=== PATIENT | male | born 1965 | race Caucasian/White ===

== ENCOUNTER 2022-06-29 09:48 | Inpatient (IN) | payer OTHER, SELFPAY ==
[2022-06-29 09:49] VITALS: BP 140/87; PULSE 75; RESP 18; TEMP 36.1; O2SAT 98; BMI 23.1
--- NOTE | 2022-06-29 09:57 | NURSING ---
NO OLD EKGS
--- NOTE | 2022-06-29 10:23 | EKG12_ITS ---
Test Reason : WEAKNESS Blood Pressure : / mmHG Vent. Rate : 071 BPM Atrial Rate : 071 BPM P-R Int : 174 ms QRS Dur : 116 ms QT Int : 428 ms P-R-T Axes : 074 041 069 degrees QTc Int : 465 ms Normal sinus rhythm Normal ECG Confirmed by MAURA ROCKWELL, SAY ([id number]), digital editor CARIE ULLOA ([id number]) on 07/05/2022 9:40:59 AM Referred By: JUANITA/MAE Confirmed By:SAY LORENZO MD
--- NOTE | 2022-06-29 10:24 | EDS_ITS ---
HPI HPI - GI History of Present Illness Chief Complaint: Weakness Narrative Narrative: 57-year-old male presenting with generalized weakness. He states he started having nausea/vomiting on last week. 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 He reports a history of symptomatic anemia, which he states is due to the surgery he had in [place]. He I had a ruptured bowel or blood clot or something in my abdomen. He states it could be related to this. Patient denies any black or bloody stools. Denies history of GERD. He is not having any abdominal pain. He does report nausea and vomiting. No chest pain or shortness of breath. No fevers, chills, body aches. PFSH [facility] Medical History Anemia History of spleen injury Ischemia, bowel Kidney disease Home Medications calcium acetate 667 mg tablet 667 mg PO TID BINDER 06/29/22 [History Last Taken 06/27/22] cholecalciferol (vitamin D3) 50 mcg (2,000 unit) capsule 50 mcg PO BID SUPPLEMENT 06/29/22 [History Last Taken 06/27/22] ferrous sulfate 325 mg (65 mg iron) tablet 325 mg PO BID SUPPLEMENT 06/29/22 [History Last Taken 06/27/22] magnesium 200 mg tablet 600 mg PO BID SUPPLEMENT 06/29/22 [History Last Taken 06/27/22] sodium bicarbonate 650 mg tablet 1,950 mg PO BID SUPPLEMENT 06/29/22 [History Last Taken 06/27/22] tamsulosin 0.4 mg capsule 0.4 mg PO QHS PROSTATE 06/29/22 [History Last Taken 06/27/22] zinc gluconate 50 mg tablet 50 mg PO BID SUPPLEMENT 06/29/22 [History Last Taken 06/27/22] Allergy/AdvReac Type Severity Reaction Status Date / Time No Known Allergies Allergy Verified 06/29/22 09:49 Social History Smoking Status: Former smoker ROS ROS ED Cardiovascular Cardiovascular: Denies chest pain or palpitations Respiratory/Chest Respiratory/Chest: Denies cough or dyspnea Gastrointestinal Gastrointestinal: Reports nausea and vomiting; Denies abdominal pain Genitourinary Genitourinary ED: Denies dysuria or hematuria Musculoskeletal Musculoskeletal: Denies arthralgias or back pain Integumentary Denies abscess or Abrasions Neurologic Neurologic: Denies headache(s) Psychiatric Psychiatric: Denies anxiety or depression EXAM Physical Exam Const Vital Signs: 06/29/22 09:49 06/29/22 10:06 06/29/22 11:28 Temperature 96.9 F L Temperature Source Temporal Pulse Rate 75 Pulse Rate [Lying] 83 Pulse Rate [Sitting (for 1 minute prior to obtaining)] 94 Pulse Rate [Standing (for 1 minute prior to obtaining)] 89 Respiratory Rate 18 Respiratory Effort Normal Non-Labored Blood Pressure 140/87 H Blood Pressure [Lying] 109/70 Blood Pressure [Sitting (for 1 minute prior to obtaining)] 130/80 H Blood Pressure [Standing (for 1 minute prior to obtaining)] 116/76 Blood Pressure Mean 104 Blood Pressure Mean [Lying] 83 Blood Pressure Mean [Sitting (for 1 minute prior to obtaining)] 96 Blood Pressure Mean [Standing (for 1 minute prior to obtaining)] 89 Pulse Ox 98 Oxygen Delivery Method Room Air Positive well nourished General Appearance ED: NAD HEENT Reports moist mucous membranes Eyes PERRL and EOMs intact bilaterally General Eye ED: Negative for pale conjunctiva or scleral icterus Neck no lymphadenopathy Resp normal respiratory effort Auscultation: Negative for rales, rhonchi or wheezes Cardio regular rate and regular rhythm GI non-tender and non-distended Auscultation: normoactive bowel sounds Back/Spine no CVA tenderness Neuro CN's II-XII intact bilaterally Sensorium / Orientation: alert Psych mental status grossly normal Skin no wounds MDM MDM MDM Narrative Medical decision making narrative: Patient presenting with nausea/vomiting. Initially he states he has no other medical problems. Patient was given Zofran, 1 L of normal saline. He denied any abdominal pain. Differential includes gastritis, peptic ulcer disease, GERD, pancreatitis, dehydration, hypokalemia, atypical presentation of ACS, I obtained a CBC to assess for white blood cell count, hemoglobin, platelets, differential. CMP to assess liver function, renal function, glucose, anion gap. High-sensitivity troponin, EKG were obtained. Chest x-ray was obtained as well. CBC showed a normal white blood cell count of 6.6. Hemoglobin 7.8 with no comparison. Hematocrit 24.7. Platelets are normal at 209. Creatinine is 12.10 and GFR is 5. Calcium is low at 6.1 with normal albumin. Patient was given IV calcium gluconate. High-sensitivity troponin 14. Lipase 89. LFTs normal. EKG on my interpretation shows a normal sinus rhythm with a ventricular rate of 71 bpm without sign of ischemic change. Chest x-ray on my interpretation shows no acute cardiopulmonary process. The radiologist interprets this and agrees. I would back in the patient's room to discuss his renal function at which time he stated that he does have some renal disease and it was presumed he was going to need dialysis at some point. He states he does not currently have any dialysis access. He states he gets all his care [facility] [place]. 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 Although I do not have a comparison it does appear to be renal failure. Patient was discussed with Dr. Arreaga initially due to the anemia and he did not think this was due to GI bleed. The patient has not complained of any black or bloody stools or emesis. He does state he has a history of symptomatic anemia. He does not know his hemoglobin level. He does not know his renal function. He does not have any online access for any of this results. I did order renal ultrasound which showed findings consistent with medical renal disease and multiple bilateral cysts. There is also noted left renal atrophy. Right upper quadrant ultrasound unremarkable. Discussed with hospitalist for admission. Impression: 1. Anemia 2. Renal failure 3. Hypocalcemia 4. Nausea/vomiting Lab Data Labs: Laboratory Results - last 24 hr 06/29/22 06/29/22 10:15 10:15 WBC 6.6 RBC 2.59 L Hgb 7.8 L Hct 24.7 L MCV 95.4 H MCH 30.1 MCHC 31.6 L RDW Std Deviation 44.3 H RDW Coeff of Moody 12.9 Plt Count 209 MPV 11.4 Immature Gran % (Auto) 0.200 Neut % (Auto) 61.2 Lymph % (Auto) 23.7 [place] % (Auto) 11.7 H Eos % (Auto) 2.4 Baso % (Auto) 0.8 Absolute Neuts (auto) 4.0 Absolute Lymphs (auto) 1.56 Nucleated RBC % 0 Sodium 137 Potassium 4.7 Chloride 110 H Carbon Dioxide 18.0 L Anion Gap 9 BUN 114 H* Creatinine 12.10 H* Estim Creat Clear Calc 6.74 Est GFR (MDRD) Af Amer 6 L Est GFR (MDRD) Non-Af 5 L BUN/Creatinine Ratio 9.4 L Glucose 119 H Calcium 6.1 L* Total Bilirubin 0.30 AST 14 L ALT 17 Alkaline Phosphatase 88 Troponin I High Sens 14 Total Protein 6.8 Albumin 3.7 Globulin 3.1 Albumin/Globulin Ratio 1.2 Lipase 89 H Radiography Diagnostic Testing: Clinical Impression(s) from Imaging Studies Gallbladder Ultrasound 06/29/22 11:30 IMPRESSION: Nonvisualization of the pancreas and the gallbladder. Right renal cyst. Nonobstructive right intrarenal calculus. Electronically Signed: Parrish Nielson MD at 13:46 EDT , Renal Ultrasound 06/29/22 11:30 IMPRESSION: The renal cortices are echogenic bilaterally suggestive of medical renal disease. Multiple bilateral renal cysts. Mild atrophy of the left kidney. Electronically Signed: Parrish Nielson MD at 14:02 EDT , Discharge Plan Disposition Disposition: Acute Care Hospital [facility] Discharge Date/Time: 06/29/22 13:40
[2022-06-29] MEDS: 0.9% Normal Saline 1,000 ML 999 ML IV (10:30)
[2022-06-29] MEDS: Ondansetron 4 MG/2 ML Vial IV (10:30)
[2022-06-29 10:32] LABS: Absolute Lymphocyte Count 1.56 X10^3/uL (0.83-4.51); Basophil# 0.05 X10^3/uL; Basophil% 0.8 % (0-1); Eosinophil# 0.16 X10^3/uL; Eosinophils% 2.4 % (0-5); Hematocrit 24.7 % (40-54); Hemoglobin 7.8 g/dL (13.0-16.5); Lymphocyte # 1.56 X10^3/ul (0.83-4.51); Lymphocyte % 23.7 % (19-41); Mean Corp Hgb Conc 31.6 g/dL (32-36); Mean Corpuscular Hgb 30.1 pg (27.0-32.0); Mean Corpuscular Volume 95.4 fL (80-94); Mean Platelet Vol. 11.4 fl (6.2-12.0); Monocyte# 0.77 X10^3/uL; Monocyte% 11.7 % (0-10); NRBC Flagged by Analyzer 0 % (0-5); Neutrophil # 4.03 X10^3/uL (2.7-7.7); Neutrophil % 61.2 % (47-70); Platelet Count 209 K/mm3 (150-450); RBC Distribution Width CV 12.9 % (11.6-14.6); RBC Distribution Width SD 44.3 fl (35.1-43.9); Red Blood Count 2.59 M/mm3 (4.6-6.2); White Blood Count 6.6 K/mm3 (4.4-11.0)
[2022-06-29 10:58] LABS: ALB/GLOB Ratio 1.2 RATIO (0.9-2.4); AST(SGOT) 14 U/L (15-37); Alanine Aminotransfer ALT/SGPT 17 U/L (16-61); Albumin, Serum 3.7 g/dL (3.2-5.0); Alkaline Phosphatase 88 U/L (45-117); Anion Gap 9 (5-15); BUN 114 mg/dL (7-18); BUN/Creat Ratio 9.4 RATIO (10-20); Calcium,Total 6.1 mg/dL (8.5-10.1); Chloride 110 mmol/L (98-107); EST Glomerular Filtration Rate 5 mL/min (>60); Est Glom Filt Rate - Afr Amer 6 mL/min (>60); Estimated Creatinine Clearance 6.74 ml/min; Globulin 3.1 g/dL (2.2-4.2); Glucose 119 mg/dL (74-106); Lipase 89 U/L (13-75); Potassium 4.7 mmol/L (3.5-5.1); Protein, Total 6.8 g/dL (6.4-8.2); Sodium Level 137 mmol/L (136-145); Troponin-I HS 14 pg/mL (3.0-78.0)
--- NOTE | 2022-06-29 10:59 | ED.RN ---
LAB CALLED CRITICAL OF BUN 114, CREAT 12.[address] SPANN
--- NOTE | 2022-06-29 11:18 | NURSING ---
DR DELMAR WALL
[2022-06-29 11:28] VITALS: BP 109/70; BP 116/76; BP 130/80; PULSE 83; PULSE 89; PULSE 94
--- NOTE | 2022-06-29 11:30 | US_ITS ---
STUDY: ABDOMINAL ULTRASOUND - RIGHT UPPER QUADRANT REASON FOR VISIT: Male, 57 years old nausea vomiting TECHNIQUE: Ultrasound evaluation of the right upper quadrant was performed with real-time and static freitas-scale imaging. TECHNICAL QUALITY: Limited. Examination limited by bowel gas. COMPARISON: None. FINDINGS: Liver: The liver measures 16.6 cm. There is normal echogenicity of the liver. The bile ducts are within normal limits. There is hepatic color flow. The direction of portal flow is hepatopetal. There is no demonstrated mass lesion. Gallbladder: The gallbladder is not visualized. Common Bile Duct (C.B.D.): The common bile duct measures 7.3 mm. Right Kidney: Normal size of the right kidney. The right kidney measures 10.2 cm x 7 cm x 5.9 cm. Normal renal cortex. The right cortex measures 1.1 cm. Multiple cysts are seen. The largest measures 3.3 cm x 3.2 cm x 2.4 cm. There is a 4 mm x 5 mm nonobstructive intrarenal calculus. There is no right hydronephrosis. US/Gallbladder IMPRESSION: Nonvisualization of the pancreas and the gallbladder. Right renal cyst. Nonobstructive right intrarenal calculus. Electronically Signed: Parrish Nielson MD at 13:46 EDT ,
--- NOTE | 2022-06-29 11:30 | US_ITS ---
STUDY: RENAL ULTRASOUND - COMPLETE REASON FOR EXAM: Male, 57 years old. Renal failure TECHNIQUE: Ultrasound evaluation of the kidneys was performed with real-time and static duenas-scale imaging. COMPARISON: None. FINDINGS: RIGHT KIDNEY: Normal location of the right kidney, which is normal in size. The right kidney measures 10.2 cm x 7 signed by 5.9 cm. Echogenic appearance of the renal cortex suggestive of medical renal disease. Multiple small cysts are seen. The largest measures 3.3 cm x 3.27 x 2.4 cm. The renal cortex measures 1.2 cm. There is a 4 mm x 5 mm x 4 mm nonobstructive intrarenal calculus. There are no right renal calculi. There is no right hydronephrosis. DISTAL RIGHT URETER: There is non-visualization of the distal right ureter. There is no demonstrated right ureterovesical junction calculus. There is no demonstrated right ureteral jet. LEFT KIDNEY: with mild renal atrophy. The left kidney measures 8 cm x 5.3 cm x 5.2 cm. The renal cortex is of increased echotexture suggesting medical renal disease. Multiple small cysts are seen. The largest measures 1.5 cm x 1.3 cm x 1.2 cm. The renal cortex measures 1.2 cm. There are no left renal calculi. There is no left hydronephrosis. DISTAL LEFT URETER: There is non-visualization of the distal left ureter. There is no demonstrated left ureterovesical junction calculus. There is no demonstrated left ureteral jet. BLADDER: The distended urinary bladder has a volume of 414 ml. There is a normal wall thickness of the distended urinary bladder. There is no demonstrated mass within the urinary bladder. There are no demonstrated bladder calculi. US/Kidney and Bladder IMPRESSION: The renal cortices are echogenic bilaterally suggestive of medical renal disease. Multiple bilateral renal cysts. Mild atrophy of the left kidney. Electronically Signed: Parrish Nielson MD at 14:02 EDT ,
--- NOTE | 2022-06-29 11:52 | NURSING ---
DR MANCILLA IN ER
--- NOTE | 2022-06-29 11:59 | NURSING ---
PCU LAURENT ANNITA
--- NOTE | 2022-06-29 12:21 | RAD_ITS ---
STUDY: X-RAY CHEST REASON FOR EXAM: Male, 57 years old. Nausea vomiting TECHNIQUE: Single AP portable view of the chest. COMPARISON: None. FINDINGS: The lungs are clear and expanded. There is no demonstrated pleural abnormality. Normal size heart. Normal mediastinum and bea. Normal visualized pulmonary arteries. Normal visualized aortic arch and descending thoracic aorta. Normal visualized thoracic spine. Normal visualized ribs, clavicles, and shoulders. There is no demonstrated abnormality of the visualized soft tissue structures of the upper abdomen. RAD/Chest 1 View (Portable) IMPRESSION: Normal x-ray examination of the chest. Electronically Signed: Parrish Nielson MD at 13:44 EDT ,
--- NOTE | 2022-06-29 12:29 | ED.RN ---
THIS RN CALLED [facility] TO OBTAIN BED CONTROL, NO ANSWER, THIS RN LEFT A VOICE MESSAGE.
[2022-06-29 12:35] VITALS: BP 125/81; PULSE 64; RESP 18; TEMP 36.8; O2SAT 98
[2022-06-29 13:42] VITALS: BMI 22.8
--- NOTE | 2022-06-29 13:50 | PCM.HP.STD ---
[facility] - General General Date of Admission: 06/29/22 Date of Service: 06/29/22 Chief Complaint: Generalized weakness. Low energy since last . Nausea vomiting and loose bowel movement. HPI Narrative PERRY POPE, is a 57 M who came to ED for generalized weakness with no energy, worn down. Patient started having nausea vomiting since last . Vomiting increased on Tuesday night. Patient denies any loose bowel movement or abdominal pain. Patient denies fever chills cough cold or chest pain or shortness of breath. Denies history of chronic heart disease, hypertension and diabetes. Patient has history of symptomatic chronic anemia. In 2011 patient had ruptured bowel probably from bowel ischemia with blood loss. In 2017 patient had blood transfusion for generalized weakness, dyspnea on exertion palpitation consistent with symptomatic anemia. 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 Patient follows track superintendent Dr. Holland in [place], [place]. He first saw him in October 2021 when patient had kidney failure, creatinine about 5 mg/dL with residual urine about 700 mL. At that time patient was on indomethacin 4 times daily which was discontinued. His kidney function did not improve significantly. Therefore left forearm AV fistula was created in January 2022. Patient was last seen by track superintendent in April 2022, when his creatinine was 4.82 GFR about 18 and BUN 43. In ED today patient came with BUN/creatinine 114/12.1, serum potassium, sodium normal range. Bicarb low at 18, anion gap 9, suggestive of chronic normal anion gap metabolic acidosis. Calcium 6.1, albumin 3.7. Hemoglobin low 7.8 but platelets normal. ER physician consulted for low hemoglobin but is thought to be from CKD stage V. Patient does not have GI bleed or hematuria or external bleeding. I talked to [place] track superintendent and patient is further admitted Past medical history as documented below. Anemia of chronic disease from CKD Social history: Patient has a history of substance use in the past quit 8 years ago. He used to have IV heroin about 4 g daily. He has also used methamphetamine and crack cocaine in the past. He was also smoking cigarettes 1 pack/day started in teenage quit 8 years ago. Denies chronic regular alcohol use. Family history: No first-degree family history of kidney failure dialysis or kidney transplant [facility] Medical History Anemia History of spleen injury Ischemia, bowel Kidney disease Home Medications calcium acetate 667 mg tablet 667 mg PO TID BINDER 06/29/22 [History Last Taken 06/27/22] cholecalciferol (vitamin D3) 50 mcg (2,000 unit) capsule 50 mcg PO BID SUPPLEMENT 06/29/22 [History Last Taken 06/27/22] ferrous sulfate 325 mg (65 mg iron) tablet 325 mg PO BID SUPPLEMENT 06/29/22 [History Last Taken 06/27/22] magnesium 200 mg tablet 600 mg PO BID SUPPLEMENT 06/29/22 [History Last Taken 06/27/22] sodium bicarbonate 650 mg tablet 1,950 mg PO BID SUPPLEMENT 06/29/22 [History Last Taken 06/27/22] tamsulosin 0.4 mg capsule 0.4 mg PO QHS PROSTATE 06/29/22 [History Last Taken 06/27/22] zinc gluconate 50 mg tablet 50 mg PO BID SUPPLEMENT 06/29/22 [History Last Taken 06/27/22] Allergy/AdvReac Type Severity Reaction Status Date / Time No Known Allergies Allergy Verified 06/29/22 09:49 Social History Smoking Status: Former smoker ROS ROS Narrative Constitutional: Reports fatigue and weakness HEENT: Reports systems reviewed and no addt'l complaints, except as documented Respiratory/Chest: Denies emphysema. No shortness of breath at rest. CVS: States pounding sensation, palpitation and dyspnea on moderate exertion. No chest pain. Gastrointestinal: Denies coffee ground emesis, hematemesis or vomiting Genitourinary: Decrease in the urine output in last 6 months to 1 year. Denies burning urination or new urinary tract symptoms Musculoskeletal: Denies joint pain and limited range of motion Neurologic: Denies seizure-like activity skin: No ulcer. No rash Endocrinology: Reports systems reviewed and no addt'l complaints, except as documented Hematologic/Lymphatic: Reports systems reviewed and no addt'l complaints, except as documented Rest 14 ROS are negative except as mentioned in HPI Vital Signs Vital Signs Vital Signs: 06/29/22 09:49 06/29/22 10:06 06/29/22 11:28 Temperature 96.9 F L Temperature Source Temporal Pulse Rate 75 Pulse Rate [Lying] 83 Pulse Rate [Sitting (for 1 minute prior to obtaining)] 94 Pulse Rate [Standing (for 1 minute prior to obtaining)] 89 Respiratory Rate 18 Respiratory Effort Normal Non-Labored Blood Pressure 140/87 H Blood Pressure [Lying] 109/70 Blood Pressure [Sitting (for 1 minute prior to obtaining)] 130/80 H Blood Pressure [Standing (for 1 minute prior to obtaining)] 116/76 Blood Pressure Mean 104 Blood Pressure Mean [Lying] 83 Blood Pressure Mean [Sitting (for 1 minute prior to obtaining)] 96 Blood Pressure Mean [Standing (for 1 minute prior to obtaining)] 89 Pulse Ox 98 Oxygen Delivery Method Room Air 06/29/22 12:35 06/29/22 12:35 Temperature 98.2 F Temperature Source Temporal Pulse Rate 64 64 Pulse Rate [Lying] Pulse Rate [Sitting (for 1 minute prior to obtaining)] Pulse Rate [Standing (for 1 minute prior to obtaining)] Respiratory Rate 18 18 Respiratory Effort Blood Pressure 125/81 H 125/81 H Blood Pressure [Lying] Blood Pressure [Sitting (for 1 minute prior to obtaining)] Blood Pressure [Standing (for 1 minute prior to obtaining)] Blood Pressure Mean 95 95 Blood Pressure Mean [Lying] Blood Pressure Mean [Sitting (for 1 minute prior to obtaining)] Blood Pressure Mean [Standing (for 1 minute prior to obtaining)] Pulse Ox 98 98 Oxygen Delivery Method Room Air Room Air Weight Weight: 156 lb 14.4 oz Body Mass Index (BMI) 23.1 Physical Exam Narrative General: Alert, Oriented x3, Cooperative HEENT: Atraumatic, PERRLA, EOMI, Normocephalic Oral: Oral mucosa moist no Gingival or Mucosal Lesions/ Ulcerations Neck: Supple, No JVD, Negative Carotid Bruits Lungs: Air entry diminished in bilateral lung bases. No crepitation/rhonchi Cardiovascular: Regular rate, Regular Rhythm, Normal S1, Normal S2, No murmurs/gallop or rub Abdomen: Soft, midline surgical scar present. No obvious hernia. Bowel Sounds Present, Non Tender, Non-Distended : No renal angle tenderness. No suprapubic tenderness. Extremities: AV fistula on left forearm. Palpable thrill present. No edema, Capillary Refill Less than 3 Seconds Skin: No rashes, No breakdown Musculoskeletal: No Tenderness to Palpation of Joints or Extremities Neurological: Cranial nerves II-XII grossly intact, DTR 2+/4 and Symmetrical, Neuro grossly intact Psych/Mental Status: Normal Affect, Appropriate. Results Lab / Micro Data Result Diagrams: 06/29/22 10:15 06/29/22 10:15 Labs: Laboratory Results - last 24 hr 06/29/22 10:15: WBC 6.6, RBC 2.59 L, Hgb 7.8 L, Hct 24.7 L, MCV 95.4 H, MCH 30.1, MCHC 31.6 L, RDW Std Deviation 44.3 H, RDW Coeff of Moody 12.9, Plt Count 209, MPV 11.4, Immature Gran % (Auto) 0.200, Neut % (Auto) 61.2, Lymph % (Auto) 23.7, Curry % (Auto) 11.7 H, Eos % (Auto) 2.4, Baso % (Auto) 0.8, Absolute Neuts (auto) 4.0, Absolute Lymphs (auto) 1.56, Nucleated RBC % 0 06/29/22 10:15: Sodium 137, Potassium 4.7, Chloride 110 H, Carbon Dioxide 18.0 L, Anion Gap 9, BUN 114 H*, Creatinine 12.10 H*, Estim Creat Clear Calc 6.74, Est GFR (MDRD) Af Amer 6 L, Est GFR (MDRD) Non-Af 5 L, BUN/Creatinine Ratio 9.4 L, Glucose 119 H, Calcium 6.1 L*, Total Bilirubin 0.30, AST 14 L, ALT 17, Alkaline Phosphatase 88, Troponin I High Sens 14, Total Protein 6.8, Albumin 3.7, Globulin 3.1, Albumin/Globulin Ratio 1.2, Lipase 89 H Radiology Impression Gallbladder Ultrasound 06/29/22 11:30 IMPRESSION: Nonvisualization of the pancreas and the gallbladder. Right renal cyst. Nonobstructive right intrarenal calculus. Electronically Signed: Parrish Nielson MD at 13:46 EDT , Chest X-Ray 06/29/22 12:21 IMPRESSION: Normal x-ray examination of the chest. Electronically Signed: Parrish Nielson MD at 13:44 EDT , Assessment & Plan Assessment/Plan (1) CKD (chronic kidney disease), stage V: (2) Anemia in chronic kidney disease (CKD): PLAN: Plan 57-year-old gentleman is being admitted for nausea vomiting for the past 5 days. Found to have CKD stage V progressively worsening and severe anemia 1. Progressive worsening of CKD stage V: Patient is being admitted in PCU. Discussed with the track superintendent, Dr. Monteiro. I also called patient's track superintendent Dr. Holland in [facility], [place] [phone]. Detailed conversation documented in HPI. He agrees with starting the dialysis. Patient might have nausea vomiting from uremia. Patient had 1 L normal saline in ED. Started on half-normal saline at 100 mill per hour. Chloride is 110. Patient has left forearm AV fistula with good palpable thrill. Kidney ultrasound reported the renal cortices are echogenic bilaterally suggestive of medical renal disease. Multiple bilateral renal cysts. Mild atrophy of the left kidney. UA, urine electrolytes, urine protein creatinine ratio ordered. 2. Severe chronic symptomatic anemia, most likely due to CKD stage V: Patient hemoglobin is 7.8, MCV 95.4 and platelet count 209,000. Patient might have palpitation dyspnea on exertion from anemia and chronic kidney disease. 2D echo ordered. Anemia work-up ordered. Stool for occult blood ordered patient does not need transfusion. Gallbladder ultrasound shows nonvisualization of pancreas and gallbladder. Nonobstructive right intrarenal calculus. 3. Hypocalcemia: Patient calcium is 6.1. Albumin 3.7. Corrected calcium 6.3. Patient was given calcium gluconate 1 g in ED. Serum phosphorous and magnesium ordered. 4. History of polysubstance use: U tox ordered. VTE prophylaxis contraindicated in view of severe anemia. Bilateral SCDs Living will/advanced directive/end of life care: Patient does not have living will or advanced directive. After discussion of benefits/risks procedures involved with full code, DNR CC arrest and DNR CC, the patient opted for full code. He does not have designated power of erisa attorney for health. His next of kin is his girlfriend, significant others Ms. Cathleen Paniagua. Patient does want artificial life support including intubation, tube feed, ventilator and/chest compression, central venous catheter, vasopressor and DC shock if needed Total time spent in [id number] encounter in discussion of advanced directive 17 minutes. Laboratory Results 06/29/22 10:15: WBC 6.6, RBC 2.59 L, Hgb 7.8 L, Hct 24.7 L, MCV 95.4 H, MCH 30.1, MCHC 31.6 L, RDW Std Deviation 44.3 H, RDW Coeff of Moody 12.9, Plt Count 209, MPV 11.4, Immature Gran % (Auto) 0.200, Neut % (Auto) 61.2, Lymph % (Auto) 23.7, Curry % (Auto) 11.7 H, Eos % (Auto) 2.4, Baso % (Auto) 0.8, Absolute Neuts (auto) 4.0, Absolute Lymphs (auto) 1.56, Nucleated RBC % 0 06/29/22 10:15: Sodium 137, Potassium 4.7, Chloride 110 H, Carbon Dioxide 18.0 L, Anion Gap 9, BUN 114 H*, Creatinine 12.10 H*, Estim Creat Clear Calc 6.74, Est GFR (MDRD) Af Amer 6 L, Est GFR (MDRD) Non-Af 5 L, BUN/Creatinine Ratio 9.4 L, Glucose 119 H, Calcium 6.1 L*, Total Bilirubin 0.30, AST 14 L, ALT 17, Alkaline Phosphatase 88, Troponin I High Sens 14, Total Protein 6.8, Albumin 3.7, Globulin 3.1, Albumin/Globulin Ratio 1.2, Lipase 89 H 06/29/22 10:15: Phosphorus Pending, Magnesium Pending Clinical Impression(s) from Imaging Studies Gallbladder Ultrasound 06/29/22 11:30 IMPRESSION: Nonvisualization of the pancreas and the gallbladder. Right renal cyst. Nonobstructive right intrarenal calculus. Renal Ultrasound 06/29/22 11:30 IMPRESSION: The renal cortices are echogenic bilaterally suggestive of medical renal disease. Multiple bilateral renal cysts. Mild atrophy of the left kidney. Electronically Signed: Parrish Nielson MD at 14:02 EDT , Chest X-Ray 06/29/22 12:21 IMPRESSION: Normal x-ray examination of the chest. Electronically Signed: Parrish Nielson MD at 13:44 EDT , Charges/Coding Visit Charges Inpatient E&M: 53043 Init Hosp L3 Procedures Hospitalists Procedures: 57522 Advncd Care Plan 30 Min
[2022-06-29 14:00] VITALS: BP 126/84; PULSE 67; RESP 18; TEMP 36.6; O2SAT 99
[2022-06-29 15:47] LABS: Magnesium 1.6 mg/dL (1.6-2.6); Phosphorus 8.3 mg/dL (2.5-4.9)
[2022-06-29 15:55] LABS: Vitamin B12 531 pg/mL (211-911)
--- NOTE | 2022-06-29 15:56 | NURSING ---
ATTEMPTED 3 TIMES TO CALL [facility] TO LET THEM KNOW OF THE ADMISSION. NEVER GOT THE CONDENSER CLEANER TO ANSWER AND TRANSFER THE THIS PERSON
[2022-06-29 16:04] LABS: Ferritin 524 ng/mL (26-388); Iron 220 ug/dL (65-175); Iron Binding Capacity,Total 170 ug/dL (250-450); PERCENT IRON SATURATION 129.4 % (15.0-55.0)
[2022-06-29] MEDS: 0.45% Normal Saline 1,000 ML 100 ML IV (16:10)
[2022-06-29] MEDS: Sodium Bicarbonate 650 MG Tablet 1950 MG PO ×2 (16:10→22:46)
[2022-06-29] MEDS: Calcium Acetate 667 MG Capsule PO (16:10)
[2022-06-29] MEDS: Ferrous Sulfate 325 MG Tablet PO (16:10)
[2022-06-29 16:34] LABS: Bacteria 0 SEEN /hpf (None Seen); Mucous, Urine 0 SEEN /hpf (<or=2+); Squamous Epithelial Cells - UA 0 SEEN /hpf (0-5); White Blood Cells 0 SEEN /hpf (0-5)
[2022-06-29 16:38] LABS: Color, Urine Straw (Yellow); Glucose, Dipstick Normal (Normal); Ketone-Dipstick Negative (Negative); Leukocyte Esterase-Dipstick Negative /ul (Negative); Nitrite-Dipstick Negative (Negative); Occult Blood-Urine 50 /ul (Negative); Protein-Dipstick 15 mg/dl (Negative); Urine Bilirubin Dipstick Negative (Negative); Urine Clarity Clear (Clear); Urine Urobilinogen Normal (Normal)
[2022-06-29 16:45] LABS: Red Blood Cells-Urine 0-5 SEEN /hpf (0-5)
[2022-06-29 16:52] LABS: Protein, Urine (Random) 19.5 mg/dL (<11.9); Protein:Creat Ratio 533 mg/g CRE (0-200); Urine Chloride 93 mmol/L (Not Establ.); Urine Sodium 93 mmol/L (Not Establ.)
[2022-06-29 17:15] LABS: Amphetamine Urine VISTA NEGATIVE (<1000 ng/mL); Barbiturate Urine VISTA NEGATIVE (< 200 ng/mL); Benzodiazepine Urine VISTA NEGATIVE (< 200 ng/mL); Cocaine Urine VISTA NEGATIVE (< 300 ng/mL); Ecstacy Urine VISTA NEGATIVE (< 500 ng/mL); Methadone Urine VISTA NEGATIVE (< 300 ng/mL); PCP Urine VISTA NEGATIVE (< 25 ng/mL); THC Urine VISTA NEGATIVE (< 50 ng/mL); Vista UDS pH Range 6
[2022-06-29 17:19] LABS: Osmolality, Urine 326 mOsm/KG
--- NOTE | 2022-06-29 19:22 | ECHOD_ITS ---
Reason For Study: Dyspnea/SOB Procedure This was a 2D Doppler, Color Flow transthoracic echocardiogram. Patient refused subcostal imaging due to abdominal pain. Exam performed portable in patient room. Left Ventricle Normal left ventricle. The estimated ejection fraction is 55-60 %. Right Ventricle Normal right ventricle. Normal systolic function. Atria Normal left atrium. Normal right atrium. Mitral Valve The mitral valve is structurally normal. No prolapse or stenosis seen. No mitral valve insufficiency. Tricuspid Valve Normal tricuspid valve. Aortic Valve The aortic valve is not well visualized in the short axis view. Pulmonic Valve The pulmonic valve is not well visualized. Great Vessels Normal aortic root. Pericardium/Pleural No pericardial effusion. MMode/2D Measurements & Calculations LVIDd: 5.7 cm IVSd: 1.1 cm Ao root diam: 3.8 cm LVIDs: 3.6 cm LVPWd: 0.97 cm LA dimension: 3.9 cm RVDd: 4.2 cm FS: 36.0 % LAV(MOD-bp): 89.8 ml LA A4 area: 24.9 cm2 RA A4 area: 22.2 cm2 LAV(MOD-bp) Indexed: 48.5 ml/m2 LAV(MOD-sp2): 86.5 ml LAV(MOD-sp4): 77.9 ml Time Measurements MV dec time: 0.26 sec Doppler Measurements & Calculations MV E max garrison: 84.5 cm/sec Lat Peak E' Garrison: 13.2 cm/sec Med Peak E' Garrison: 14.3 cm/sec MV A max garrison: 63.5 cm/sec E/E' lat: 6.4 E/E' med: 5.9 MV E/A: 1.3 MV V2 max: 86.2 cm/sec MV P1/2t max garrison: 86.7 cm/sec Ao V2 max: 127.0 cm/sec MV max P.0 mmHg MV P1/2t: 84.4 msec Ao max P.5 mmHg MV V2 mean: 52.2 cm/sec MV dec slope: 300.8 cm/sec2 MV mean P.3 mmHg MVA(P1/2t): 2.6 cm2 MV V2 VTI: 30.2 cm LV V1 max: 120.4 cm/sec PA V2 max: 98.0 cm/sec TR max garrison: 235.3 cm/sec LV V1 max P.8 mmHg TR max P.2 mmHg LV V1 mean P.3 mmHg LV V1 mean: 84.8 cm/sec LV V1 VTI: 28.1 cm ECHO/Echo Complete Interpretation Summary The estimated ejection fraction is 55-60 %. Previous echocardiogram to compare Limited studies. Ordering Physician: Jeferson Henson Performed By: Nakul Aguilar RCS
[2022-06-29 20:23] VITALS: BP 112/77; PULSE 62; RESP 18; TEMP 36.8; O2SAT 98
[2022-06-29 22:42] VITALS: BP 115/73; PULSE 99; RESP 18; TEMP 36.7; O2SAT 99
[2022-06-29] MEDS: Magnesium Chloride 64 MG Delay Rel.Tablet 128 MG PO (22:47)
[2022-06-29] MEDS: Tamsulosin HCl 0.4 MG Capsule PO (22:48)
[2022-06-29] MEDS: Cholecalciferol (VIT D3) 25 MCG TABLET (1,000 UNITS) 50 MCG PO (22:48)
[2022-06-30] VITALS (7 sets, daily range): BP systolic 103–146; BP diastolic 67–81; PULSE 61–70; RESP 16–18; TEMP 36.6–37.2; O2SAT 95–98; BMI 22.9
[2022-06-30] MEDS: Sodium Bicarbonate 650 MG Tablet 1950 MG PO ×3 (05:00→21:34)
[2022-06-30 05:11] LABS: Absolute Lymphocyte Count 2.17 X10^3/uL (0.83-4.51); Absolute Neutrophil Count 3.5 X10^3/uL (2.0-7.7); Basophil# 0.04 X10^3/uL; Basophil% 0.6 % (0-1); Eosinophil# 0.16 X10^3/uL; Eosinophils% 2.4 % (0-5); Hemoglobin 6.6 g/dL (13.0-16.5); Lymphocyte # 2.17 X10^3/ul (0.83-4.51); Lymphocyte % 32.5 % (19-41); Mean Corp Hgb Conc 31.4 g/dL (32-36); Mean Corpuscular Hgb 30.4 pg (27.0-32.0); Mean Corpuscular Volume 96.8 fL (80-94); Mean Platelet Vol. 11.4 fl (6.2-12.0); Monocyte# 0.82 X10^3/uL; Monocyte% 12.3 % (0-10); NRBC Flagged by Analyzer 0 % (0-5); Neutrophil # 3.47 X10^3/uL (2.7-7.7); Neutrophil % 52.1 % (47-70); Platelet Count 169 K/mm3 (150-450); RBC Distribution Width CV 13.1 % (11.6-14.6); RBC Distribution Width SD 46.1 fl (35.1-43.9); Red Blood Count 2.17 M/mm3 (4.6-6.2); White Blood Count 6.7 K/mm3 (4.4-11.0)
[2022-06-30 06:01] LABS: Anion Gap 8 (5-15); BUN 103 mg/dL (7-18); BUN/Creat Ratio 9.3 RATIO (10-20); Calcium,Total 5.8 mg/dL (8.5-10.1); Chloride 113 mmol/L (98-107); EST Glomerular Filtration Rate 5 mL/min (>60); Est Glom Filt Rate - Afr Amer 6 mL/min (>60); Estimated Creatinine Clearance 7.32 ml/min; Glucose 118 mg/dL (74-106); Potassium 4.6 mmol/L (3.5-5.1); Sodium Level 137 mmol/L (136-145)
--- NOTE | 2022-06-30 06:35 | PCM.HOSP.N ---
Hospitalist Note Hgb 6.6, will order 1 u PRBC.
[2022-06-30] MEDS: Magnesium Chloride 64 MG Delay Rel.Tablet 128 MG PO ×2 (08:38→21:33)
[2022-06-30] MEDS: Ferrous Sulfate 325 MG Tablet PO (08:38)
[2022-06-30] MEDS: Calcium Acetate 667 MG Capsule PO ×3 (08:38→16:57)
[2022-06-30] MEDS: Cholecalciferol (VIT D3) 25 MCG TABLET (1,000 UNITS) 50 MCG PO ×2 (08:39→21:35)
[2022-06-30 09:44] LABS: Hepatitis B Surf AB - EMP Non-Reactive; Hepatitis B Surface Antigen Non-Reactive (Nonreactive)
--- NOTE | 2022-06-30 10:16 | PCM.CONS.R ---
Assessment & Plan Assessment/Plan (1) CKD (chronic kidney disease), stage V: (2) Anemia in chronic kidney disease (CKD): (3) Metabolic acidosis: PLAN: Plan This is a 57-year-old male with past medical history significant for chronic kidney disease stage IV/V who presented to the emergency room yesterday with complaints of feeling unwell, fatigue, nausea. In the emergency room lab work demonstrated creatinine 12.10, BUN 114, estimated GFR 5. Patient was admitted for further evaluation and treatment. Patient has a known history of CKD and patient's technical asst, Dr. Holland (in [place]) was contacted yesterday by Dr. Henson. Apparently in October 2021 serum creatinine 5 mg/dL and in April 2022 serum creatinine 4.82. In anticipation for eventual hemodialysis patient did undergo creation left forearm AV fistula in January 2022. Today patient's creatinine is 11.10, potassium 4.6, bicarb 16. It appears patient has had some progression of CKD now needing renal replacement therapy. Patient does have uremic symptoms. In anticipation for eventual hemodialysis patient did undergo creation left arm AV fistula however today there is not a strong thrill and bruit. Surgery team has been consulted for placement of tunneled HD catheter. Vascular team also consulted to evaluate AV fistula if able to be accessed or even salvaged. Risks and benefits of dialysis was explained to patient and he is in agreement for starting hemodialysis. Once access is placed we will start hemodialysis. There is no emergent need for TEST ARCHITECT today, patient is not hypervolemic or hyperkalemic. Potassium 4.6, though bicarb is low patient is on sodium bicarbonate tablets and this will improve with hemodialysis. May be able to stop bicarbonate tablets at time of discharge. We will consult social media campaign manager and discharge planning team to arrange for outpatient dialysis in [place]. Hepatitis B surface antigen and hepatitis panel ordered. Blood pressures acceptable, not on any antihypertensives. Patient is on a binder we will monitor phosphorus levels periodically. Today hemoglobin is 6.6 and patient is receiving 1 unit PRBC; patient likely has anemia of chronic disease. Stool OB ordered to rule out other reasons for anemia. Further orders forthcoming as hospitalization evolves, thank you for allowing us to participate in the care of Mr. Levy. HPI Consult Data Date of Consult: 06/30/22 HPI Narrative HPI Narrative: PERRY LEVY, is a 57 M with past medical history significant for CKD stage IV/V, anemia of chronic disease, who presented to the emergency room yesterday with complaints of feeling unwell with nausea and vomiting going on since last week. Lab work in the emergency room showed creatinine 12.10, BUN 114, potassium 4.7 and bicarb 18. Patient was admitted for further evaluation and treatment. We were consulted for renal insufficiency. Patient reports he follows with nephrology in [place] and has been told that he has CKD stage IV/V. In anticipation for eventual need for hemodialysis patient underwent creation of left forearm AV fistula in January 2022. Patient reports since AV fistula creation he was seen by his vascular surgeon but is unaware if AVF is functioning and able to be used as per patient he was told I did the best I could do. Patient denies any recent NSAID use, denies any new medications. Patient does complain of feeling tired with no energy. [facility] Medical History Anemia History of spleen injury Ischemia, bowel Kidney disease Home Medications calcium acetate 667 mg tablet 667 mg PO TID BINDER 06/29/22 [History Last Taken 06/27/22] cholecalciferol (vitamin D3) 50 mcg (2,000 unit) capsule 50 mcg PO BID SUPPLEMENT 06/29/22 [History Last Taken 06/27/22] ferrous sulfate 325 mg (65 mg iron) tablet 325 mg PO BID SUPPLEMENT 06/29/22 [History Last Taken 06/27/22] magnesium 200 mg tablet 600 mg PO BID SUPPLEMENT 06/29/22 [History Last Taken 06/27/22] sodium bicarbonate 650 mg tablet 1,950 mg PO BID SUPPLEMENT 06/29/22 [History Last Taken 06/27/22] tamsulosin 0.4 mg capsule 0.4 mg PO QHS PROSTATE 06/29/22 [History Last Taken 06/27/22] zinc gluconate 50 mg tablet 50 mg PO BID SUPPLEMENT 06/29/22 [History Last Taken 06/27/22] Allergy/AdvReac Type Severity Reaction Status Date / Time No Known Allergies Allergy Verified 06/29/22 09:49 Social History Smoking Status: Former smoker ROS ROS Narrative As in HPI Physical Exam Narrative Alert and oriented x3, no apparent distress S1, S2, RRR Lung sounds clear anteriorly and posteriorly no wheezes, rhonchi or rales noted Abdomen soft, nontender, positive bowel sounds x4 quadrants No edema noted to bilateral lower legs feet or arms Left forearm AV fistula unable to auscultate bruit, unable to palpate thrill. Lab / Micro Data Result Diagrams: 06/30/22 04:53 06/30/22 04:53 Labs: Laboratory Results - last 24 hr 06/29/22 10:15: WBC 6.6, RBC 2.59 L, Hgb 7.8 L, Hct 24.7 L, MCV 95.4 H, MCH 30.1, MCHC 31.6 L, RDW Std Deviation 44.3 H, RDW Coeff of Moody 12.9, Plt Count 209, MPV 11.4, Immature Gran % (Auto) 0.200, Neut % (Auto) 61.2, Lymph % (Auto) 23.7, Sharp % (Auto) 11.7 H, Eos % (Auto) 2.4, Baso % (Auto) 0.8, Absolute Neuts (auto) 4.0, Absolute Lymphs (auto) 1.56, Nucleated RBC % 0 06/29/22 10:15: Sodium 137, Potassium 4.7, Chloride 110 H, Carbon Dioxide 18.0 L, Anion Gap 9, BUN 114 H*, Creatinine 12.10 H*, Estim Creat Clear Calc 6.74, Est GFR (MDRD) Af Amer 6 L, Est GFR (MDRD) Non-Af 5 L, BUN/Creatinine Ratio 9.4 L, Glucose 119 H, Calcium 6.1 L*, Total Bilirubin 0.30, AST 14 L, ALT 17, Alkaline Phosphatase 88, Troponin I High Sens 14, Total Protein 6.8, Albumin 3.7, Globulin 3.1, Albumin/Globulin Ratio 1.2, Lipase 89 H 06/29/22 10:15: Phosphorus 8.3 H, Magnesium 1.6 06/29/22 10:15: Vitamin B12 531 06/29/22 10:15: Iron 220 H, TIBC 170 L, Iron Saturation 129.4 H, Ferritin 524 H, Folate 17.60 06/29/22 10:15: Blood Type O POSITIVE, Antibody Screen NEGATIVE, Crossmatch See Detail 06/29/22 10:15: Hep Bs Antigen Non-Reactive, Hep Bs Antibody Non-Reactive 06/29/22 16:15: Urine Opiates Screen NEGATIVE, Urine Methadone Screen NEGATIVE, Ur Barbiturates Screen NEGATIVE, Ur Phencyclidine Scrn NEGATIVE, Ur Amphetamines Screen NEGATIVE, MDMA (Ecstasy) Screen NEGATIVE, U Benzodiazepines Scrn NEGATIVE, Urine Cocaine Screen NEGATIVE, U Cannabinoids Screen NEGATIVE, Ur Drug Screen Comment 06/29/22 16:15: Urine Color Straw, Urine Clarity Clear, Urine pH 6.0, Ur Specific [place] 1.010, Urine Protein 15 H, Urine Glucose (UA) Normal, Urine Ketones Negative, Urine Occult Blood 50 H, Urine Nitrite Negative, Urine Bilirubin Negative, Urine Urobilinogen Normal, Ur Leukocyte Esterase Negative, Urine RBC 0-5 SEEN, Urine WBC 0 SEEN, Ur Squamous Epith Cells 0 SEEN, Urine Bacteria 0 SEEN, Urine Mucus 0 SEEN 06/29/22 16:15: Urine Osmolality 326, U Random Total Protein 19.5 H, Ur Random Sodium 93, Urine Creatinine 36.60, Protein/Creatinin Ratio 533 H, Urine Potassium 14.0, Urine Chloride 93 06/30/22 04:53: WBC 6.7, RBC 2.17 L, Hgb 6.6 L, Hct 21.0 L, MCV 96.8 H, MCH 30.4, MCHC 31.4 L, RDW Std Deviation 46.1 H, RDW Coeff of Moody 13.1, Plt Count 169, MPV 11.4, Immature Gran % (Auto) 0.100, Neut % (Auto) 52.1, Lymph % (Auto) 32.5, Sharp % (Auto) 12.3 H, Eos % (Auto) 2.4, Baso % (Auto) 0.6, Absolute Neuts (auto) 3.5, Absolute Lymphs (auto) 2.17, Nucleated RBC % 0 06/30/22 04:53: Sodium 137, Potassium 4.6, Chloride 113 H, Carbon Dioxide 16.0 L, Anion Gap 8, BUN 103 H*, Creatinine 11.10 H*, Estim Creat Clear Calc 7.32, Est GFR (MDRD) Af Amer 6 L, Est GFR (MDRD) Non-Af 5 L, BUN/Creatinine Ratio 9.3 L, Glucose 118 H, Calcium 5.8 L* Radiology Impression Gallbladder Ultrasound 06/29/22 11:30 IMPRESSION: Nonvisualization of the pancreas and the gallbladder. Right renal cyst. Nonobstructive right intrarenal calculus. Electronically Signed: Parrish Nielson MD at 13:46 EDT , Renal Ultrasound 06/29/22 11:30 IMPRESSION: The renal cortices are echogenic bilaterally suggestive of medical renal disease. Multiple bilateral renal cysts. Mild atrophy of the left kidney. Electronically Signed: Parrish Nielson MD at 14:02 EDT , Chest X-Ray 06/29/22 12:21 IMPRESSION: Normal x-ray examination of the chest. Electronically Signed: Parrish Nielson MD at 13:44 EDT ,
--- NOTE | 2022-06-30 11:30 | CASEMGMT ---
STEPHANIE GARNER Face to Face with patient for initial transition planning/care coordination assessment. RN PASCUAL introduced self and role at [facility]. Patient lying in bed, alert and oriented. Patient willing to participate in assessment and is able to answer all questions appropriately. Care providers, pharmacy, and demographics verified. Patient wishes to discharge home, denies need for home health at this time. Patient states he has no further needs or concerns at this time. CM to follow for discharge planning needs that may arise. PCP: Camryn BARNES in [facility] Specialists: Dr. Holland, Neph[facility]sit Preferred Pharmacy: [facility] retail at discharge. Insurance: [facility], [place] Prescription Benefit: yes Living Will/HPOA: none LNOK: significant other Living Arrangements: Patient lives with girlfriend in a single story home with 3 steps and railing to enter the home. Patient states he is independent at home. Transportation: self, girlfriend DME/HHC: Patient denies DME in the home. No previous HHC or SNF. STEPHANIE GARNER to help coordinate HD setup with [facility] at discharge. Disposition Plan: Patient to discharge home with family support and follow-up plans in place. Alexandrea MORENO, RN, CM
[2022-06-30] MEDS: 0.9% Saline Lock 10 ML Syringe IV (11:37)
--- NOTE | 2022-06-30 13:37 | AVDS_ITS ---
Reason For Study: Check fistula, No palpable thrill LEFT Inflow - 84.2/15.0 cm/s Inflow - 49.3 ml/min Prox Anas. - 80.8/5.6 cm/s Prox Anas. - 34.8 ml/min Prox to distal graft thrombosed. Cephalic vein outflow is compressible approximately 10 cm below AC. Cephalic vein compressible above AC. Normal venous flow noted. Preliminary given to Katlin VILLALPANDO. VL/AV Fistula/Dialysis Graft Scan Interpretation Summary Occluded left radio-cephalic fistula just beyond anastomosis. Patent radial artery with normal waveforms Patent upper arm cephalic vein Ordering Physician: Katlin Castanon Referring Physician: [facility] Performed By: Michael Muro RVT
--- NOTE | 2022-06-30 14:23 | PCM.PN.HOSP ---
Reason for Visit Reason for Visit: Diagnoses Anemia in chronic kidney disease (06/29/22) Chronic kidney disease, stage 5 (06/29/22) Chronic kidney disease, unspecified (06/29/22) Follow-up for uremic symptoms with CKD stage V Subjective Subjective Patient was admitted with nausea and vomiting which has subsided. BP is controlled. Hemoglobin low 6.6. Labs reviewed. No fever. Objective Data Objective Data Vital Signs: Vital Signs Temp Pulse Resp BP Pulse Ox O2 Del Method 98.0 F 70 16 146/81 H 98 Room Air 06/30/22 11:38 06/30/22 11:38 06/30/22 11:38 06/30/22 11:38 06/30/22 11:38 06/30/22 11:38 Oxygen Delivery Method Room Air Weight: 155 lb 6.814 oz Body Mass Index (BMI) 22.9 Intake & Output: Intake and Output for Last 24 Hours 06/28/22 06/29/22 06/30/22 23:59 23:59 23:59 Intake Total 1110 / 1330 2220 / 2220 Output Total 450 / 450 600 / 600 Balance 660 / 880 1620 / 1620 Lab / Micro Data Result Diagrams: 06/30/22 04:53 06/30/22 04:53 Labs: Laboratory Results - last 24 hr 06/29/22 10:15: Phosphorus 8.3 H, Magnesium 1.6 06/29/22 10:15: Vitamin B12 531 06/29/22 10:15: Iron 220 H, TIBC 170 L, Iron Saturation 129.4 H, Ferritin 524 H, Folate 17.60 06/29/22 10:15: Blood Type O POSITIVE, Antibody Screen NEGATIVE, Crossmatch See Detail 06/29/22 10:15: Hep Bs Antigen Non-Reactive, Hep Bs Antibody Non-Reactive 06/29/22 16:15: Urine Opiates Screen NEGATIVE, Urine Methadone Screen NEGATIVE, Ur Barbiturates Screen NEGATIVE, Ur Phencyclidine Scrn NEGATIVE, Ur Amphetamines Screen NEGATIVE, MDMA (Ecstasy) Screen NEGATIVE, U Benzodiazepines Scrn NEGATIVE, Urine Cocaine Screen NEGATIVE, U Cannabinoids Screen NEGATIVE, Ur Drug Screen Comment 06/29/22 16:15: Urine Color Straw, Urine Clarity Clear, Urine pH 6.0, Ur Specific [place] 1.010, Urine Protein 15 H, Urine Glucose (UA) Normal, Urine Ketones Negative, Urine Occult Blood 50 H, Urine Nitrite Negative, Urine Bilirubin Negative, Urine Urobilinogen Normal, Ur Leukocyte Esterase Negative, Urine RBC 0-5 SEEN, Urine WBC 0 SEEN, Ur Squamous Epith Cells 0 SEEN, Urine Bacteria 0 SEEN, Urine Mucus 0 SEEN 06/29/22 16:15: Urine Osmolality 326, U Random Total Protein 19.5 H, Ur Random Sodium 93, Urine Creatinine 36.60, Protein/Creatinin Ratio 533 H, Urine Potassium 14.0, Urine Chloride 93 06/30/22 04:53: WBC 6.7, RBC 2.17 L, Hgb 6.6 L, Hct 21.0 L, MCV 96.8 H, MCH 30.4, MCHC 31.4 L, RDW Std Deviation 46.1 H, RDW Coeff of [place] 13.1, Plt Count 169, MPV 11.4, Immature Gran % (Auto) 0.100, Neut % (Auto) 52.1, Lymph % (Auto) 32.5, [place] % (Auto) 12.3 H, Eos % (Auto) 2.4, Baso % (Auto) 0.6, Absolute Neuts (auto) 3.5, Absolute Lymphs (auto) 2.17, Nucleated RBC % 0 06/30/22 04:53: Sodium 137, Potassium 4.6, Chloride 113 H, Carbon Dioxide 16.0 L, Anion Gap 8, BUN 103 H*, Creatinine 11.10 H*, Estim Creat Clear Calc 7.32, Est GFR (MDRD) Af Amer 6 L, Est GFR (MDRD) Non-Af 5 L, BUN/Creatinine Ratio 9.3 L, Glucose 118 H, Calcium 5.8 L* Physical Exam Narrative Physical exam General: Alert, Oriented x3, Cooperative HEENT: Pale conjunctive a. Atraumatic, PERRLA, EOMI, Normocephalic Oral: Oral mucosa moist no Gingival or Mucosal Lesions/ Ulcerations Neck: Supple, No JVD, Negative Carotid Bruits Lungs: Air entry diminished in bilateral lung bases. No crepitation/rhonchi Cardiovascular: Regular rate, Regular Rhythm, Normal S1, Normal S2, No murmurs/gallop or rub Abdomen: Soft, midline surgical scar present. No obvious hernia. Bowel Sounds Present, Non Tender, Non-Distended : No renal angle tenderness. No suprapubic tenderness. Extremities: AV fistula on left forearm. Palpable thrill present. No edema, Capillary Refill Less than 3 Seconds Skin: No rashes, No breakdown Musculoskeletal: No Tenderness to Palpation of Joints or Extremities Neurological: Cranial nerves II-XII grossly intact, DTR 2+/4 and Symmetrical, Neuro grossly intact Psych/Mental Status: Normal Affect, Appropriate. Assessment & Plan Assessment/Plan (1) CKD (chronic kidney disease), stage V: (2) Anemia in chronic kidney disease (CKD): PLAN: Plan 57-year-old gentleman is being admitted for nausea vomiting for the past 5 days. Found to have CKD stage V progressively worsening and severe anemia 1. Progressive worsening of CKD stage V: Patient is being admitted in PCU. Discussed with the pipe organ tuner and repairer, Dr. Monteiro. I also called patient's pipe organ tuner and repairer Dr. Holland in [facility] [place] [id number]. Detailed conversation documented in HPI. He agrees with starting the dialysis. Patient might have nausea vomiting from uremia. Patient had 1 L normal saline in ED. Started on half-normal saline at 100 mill per hour. Chloride is 110. Patient has left forearm AV fistula with good palpable thrill. Kidney ultrasound reported the renal cortices are echogenic bilaterally suggestive of medical renal disease. Multiple bilateral renal cysts. Mild atrophy of the left kidney. UA, urine electrolytes, urine protein creatinine ratio ordered. 06/30: Patient does not have signs and symptoms of hypervolemia. Nausea and vomiting has subsided. Phosphorus 8.3. Magnesium 1.6. UA is bland with protein 15, LE negative, WBC 0 RBC 0, bacteria 0. Urine protein/creatinine ratio elevated 533 milligram/gram Cr. Urine sodium 93, potassium 14. Discussed with the pipe organ tuner and repairer. AV fistula is not pulsatile probably thrombosed/nonfunctioning. I called Dr. Adkins who recommended vascular surgeon for fistulogram/permacath. Vascular surgery called and consult requested. Patient is not emergent need of dialysis. 2. Severe chronic symptomatic anemia, most likely due to CKD stage V: Patient hemoglobin is 7.8, MCV 95.4 and platelet count 209,000. Patient might have palpitation dyspnea on exertion from anemia and chronic kidney disease. 2D echo ordered. Anemia work-up ordered. Stool for occult blood ordered patient does not need transfusion. Gallbladder ultrasound shows nonvisualization of pancreas and gallbladder. Nonobstructive right intrarenal calculus. 06/30: Iron work-up shows high iron 220, ferritin 524. Folate normal. B12 531. Overall it is suggestive of anemia due to CKD. Hemoglobin decreased to 6.6. MCV 96. Platelet count 169 K. Plan for PRBC transfusion during dialysis. 3. Hypocalcemia: Patient calcium is 6.1. Albumin 3.7. Corrected calcium 6.3. Patient was given calcium gluconate 1 g in ED. Serum phosphorous and magnesium ordered. 06/30: Repeat calcium 5.8. Will leave on pipe organ tuner and repairer for decision for replacement for replacement 4. History of polysubstance use: U tox ordered. VTE prophylaxis contraindicated in view of severe anemia. Bilateral SCDs Living will/advanced directive/end of life care: Patient does not have living will or advanced directive. After discussion of benefits/risks procedures involved with full code, DNR CC arrest and DNR CC, the patient opted for full code. He does not have designated power of hospital pharmacy technician for health. His next of kin is his girlfriend, significant others Ms. Cathleen Paniagua. Patient does want artificial life support including intubation, tube feed, ventilator and/chest compression, central venous catheter, vasopressor and DC shock if needed Total time spent in [id number] encounter in discussion of advanced directive 17 minutes. Clinical Impression(s) from Imaging Studies Gallbladder Ultrasound 06/29/22 11:30 IMPRESSION: Nonvisualization of the pancreas and the gallbladder. Right renal cyst. Nonobstructive right intrarenal calculus. Renal Ultrasound 06/29/22 11:30 IMPRESSION: The renal cortices are echogenic bilaterally suggestive of medical renal disease. Multiple bilateral renal cysts. Mild atrophy of the left kidney. Chest X-Ray 06/29/22 12:21 IMPRESSION: Normal x-ray examination of the chest. Charges/Coding Visit Charges Inpatient E&M: 02333 Subs Hosp L2
--- NOTE | 2022-06-30 15:13 | CHAPLAIN ---
Type of Pastoral Visit _x__ Initial Visit ___ Follow-up Visit ___ On-call Visit ___ General Patient Visit ___ Spiritual Assessment ___ Family Conference ___ Bereavement ___ Rapid Response ___ Code Blue ___ Other (describe below) Pastoral Care Referral From _x__ Patient ___ Family ___ Nurse ___ Physician ___ Home Health Rn ___ Manager Cleaning ___ Other (describe below) Sacrament/Intervention _x__ Active listening ___ Anointing ___ Presybeterian ___ Bereavement ___ Communion ___ Kaleigh exploration ___ ___ Life review _x__ Prayer ___ Reconciliation ___ Sacrament of Sick _x__ Supportive presence ___ Wedding ___ Other (describe below) Pastoral Comments patient was preparing to get into shower but welcomed time for a visit and prayer; pt states that he is dealing with some change and probable dialysis; pt uncertain about his feelings and how this will work out for his life; pt admits some apprehension and willingness for support and prayer
--- NOTE | 2022-06-30 17:36 | CON.PCM.SX_ITS ---
Assessment & Plan Assessment/Plan (1) CKD (chronic kidney disease), stage V: (2) AV fistula: PLAN: Left forearm AV fistula without palpable thrill, likely failed. Will obtain ultrasound. Further plan will be pending these results, but if it is occluded would not pursue fistulogram. As patient will not be establishing care in [place], would defer to his established surgeon in [place] for any future fistula creation. Nephrology indicated that patient did not require hemodialysis today, but seems likely will require it during this admission. If so, tunneled catheter will be necessary and will need to consult general surgery for this. Will continue to follow. HPI Consult Data Date of Consult: 06/30/22 HPI Narrative HPI Narrative: PERRY POPE, is a 57 M who presented to [facility] ER on 06/29/2022 with generalized weakness, nausea, vomiting starting last . Patient was admitted for renal failure and anemia. 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 He does have a history of symptomatic anemia. He does have history of chronic kidney disease and follows with nephrology [place] [facility] [place]. He had a left forearm AV fistula created in January 2022 in anticipation of his eventual need for dialysis. At his admission on 06/29/2022, this fistula was noted to have good thrill but upon evaluation by nephrology today no palpable thrill. We are consulted for evaluation of this AV fistula. Patient tells me he is feeling better today than yesterday. No further vomiting and somewhat improved nausea. He denies any chest pain, shortness of breath, palpitations, syncope. [facility] Medical History Anemia History of spleen injury Ischemia, bowel Kidney disease Home Medications calcium acetate 667 mg tablet 667 mg PO TID BINDER 06/29/22 [History Last Taken 06/27/22] cholecalciferol (vitamin D3) 50 mcg (2,000 unit) capsule 50 mcg PO BID SUPPLEMENT 06/29/22 [History Last Taken 06/27/22] ferrous sulfate 325 mg (65 mg iron) tablet 325 mg PO BID SUPPLEMENT 06/29/22 [History Last Taken 06/27/22] magnesium 200 mg tablet 600 mg PO BID SUPPLEMENT 06/29/22 [History Last Taken 06/27/22] sodium bicarbonate 650 mg tablet 1,950 mg PO BID SUPPLEMENT 06/29/22 [History Last Taken 06/27/22] tamsulosin 0.4 mg capsule 0.4 mg PO QHS PROSTATE 06/29/22 [History Last Taken 06/27/22] zinc gluconate 50 mg tablet 50 mg PO BID SUPPLEMENT 06/29/22 [History Last Taken 06/27/22] Allergy/AdvReac Type Severity Reaction Status Date / Time No Known Allergies Allergy Verified 06/29/22 09:49 Social History Smoking Status: Former smoker Physical Exam Const alert, oriented x3 and no apparent distress General Appearance: cooperative and comfortable HEENT normocephalic, head/scalp atraumatic, hearing grossly normal bilaterally, external ears normal and external nose normal Eyes EOMs intact bilaterally General Eye: normal appearance of both eyes Resp normal respiratory effort, normal air movement, no retractions and no use of accessory muscles Effort and Inspection: able to speak in complete sentences; Negative for labored, stridor or audible wheezes Cardio regular rate and regular rhythm Peripheral Pulses: brachial pulses present and radial pulses present Extremity full ROM, no clubbing, cyanosis or edema and no pedal edema Extremity Narrative: Left forearm AV fistula with palpable pulsation but no palpable thrill and no bruit auscultated. Left radial pulse easily palpable. Skin Trauma: no lacerations or abrasions Wounds: Negative for wounds noted Neuro oriented x3, CN's II-XII intact bilaterally, moves all extremities, no focal motor deficits and no sensory deficits noted Psych mental status grossly normal Appearance: grossly normal Attitude: calm Activity / Motor Behavior: appropriate eye contact Speech: normal speech Mood & Affect: euthymic mood Insight: insight good Judgement: judgement good Medical Records Data Medical Nutrition Assessment Dietitian: Malnutrition Criteria Met Start: 06/30/22 15:22 Freq: Status: Active Protocol: Document 06/30/22 15:22 (Rec: 06/30/22 15:22 [id number]) Nutrition Malnutrition Evidence of Malnutrition Exists Yes Malnutrition (severe): Acute Illness/Injury Evidenced By Suboptimal Energy Intake ( Severe),Weight Loss (Severe) Clinical Problem Altered Nutrient-Related Laboratory Values Etiology related to CKD5 Signs/Symptoms as evidenced by BUN 103, creatinine 11.10, GFR 5 Status Active Problem Acute Disease or Injury Related Malnutrition Etiology severe related to CKD 5, nausea, vomiting Signs/Symptoms as evidenced by <50% intake of estimated energy needs for 7 days and 3% weight loss in 1 week. Status Active Problem Recommendation Dietitian Recommendations/Changes Change diet to Renal -protein restricted diet, will add CCD diet to help manage blood sugars. If pt starts dialysis, recommend changing diet to Renal General/CCD. Will hold off on ONS due to renal lab values. Lab / Micro Data Result Diagrams: 06/30/22 04:53 06/30/22 04:53 Labs: Laboratory Results - last 24 hr 06/29/22 10:15: Blood Type O POSITIVE, Antibody Screen NEGATIVE, Crossmatch See Detail 06/29/22 10:15: Hep Bs Antigen Non-Reactive, Hep Bs Antibody Non-Reactive 06/30/22 04:53: WBC 6.7, RBC 2.17 L, Hgb 6.6 L, Hct 21.0 L, MCV 96.8 H, MCH 30.4, MCHC 31.4 L, RDW Std Deviation 46.1 H, RDW Coeff of [place] 13.1, Plt Count 169, MPV 11.4, Immature Gran % (Auto) 0.100, Neut % (Auto) 52.1, Lymph % (Auto) 32.5, [place] % (Auto) 12.3 H, Eos % (Auto) 2.4, Baso % (Auto) 0.6, Absolute Neuts (auto) 3.5, Absolute Lymphs (auto) 2.17, Nucleated RBC % 0 06/30/22 04:53: Sodium 137, Potassium 4.6, Chloride 113 H, Carbon Dioxide 16.0 L , Anion Gap 8, BUN 103 H*, Creatinine 11.10 H*, Estim Creat Clear Calc 7.32, Est GFR (MDRD) Af Amer 6 L, Est GFR (MDRD) Non-Af 5 L, BUN/Creatinine Ratio 9.3 L, Glucose 118 H, Calcium 5.8 L* Radiology Impression Echocardiogram 06/29/22 19:22 Interpretation Summary The estimated ejection fraction is 55-60 %. Previous echocardiogram to compare Limited studies. Ordering Physician: Jeferson Henson Performed By: Nakul Aguilar RCS Charges/Coding Visit Charges Inpatient E&M: 56530 Init Hosp L3
[2022-06-30] MEDS: Tamsulosin HCl 0.4 MG Capsule PO (21:33)
[2022-07-01] VITALS (13 sets, daily range): BP systolic 83–121; BP diastolic 56–78; PULSE 56–85; RESP 14–16; TEMP 36.5–36.9; O2SAT 92–100; BMI 22.8; BMI 23.1
[2022-07-01 06:10] LABS: Absolute Lymphocyte Count 2.27 X10^3/uL (0.83-4.51); Absolute Neutrophil Count 5.2 X10^3/uL (2.0-7.7); Basophil# 0.05 X10^3/uL; Basophil% 0.6 % (0-1); Eosinophil# 0.21 X10^3/uL; Eosinophils% 2.4 % (0-5); Hematocrit 22.8 % (40-54); Hemoglobin 7.4 g/dL (13.0-16.5); Lymphocyte # 2.27 X10^3/ul (0.83-4.51); Lymphocyte % 26.1 % (19-41); Mean Corp Hgb Conc 32.5 g/dL (32-36); Mean Corpuscular Hgb 30.3 pg (27.0-32.0); Mean Corpuscular Volume 93.4 fL (80-94); Mean Platelet Vol. 11.5 fl (6.2-12.0); Monocyte# 0.98 X10^3/uL; Monocyte% 11.3 % (0-10); NRBC Flagged by Analyzer 0 % (0-5); Neutrophil # 5.16 X10^3/uL (2.7-7.7); Neutrophil % 59.3 % (47-70); Platelet Count 173 K/mm3 (150-450); RBC Distribution Width SD 44.5 fl (35.1-43.9); Red Blood Count 2.44 M/mm3 (4.6-6.2); White Blood Count 8.7 K/mm3 (4.4-11.0)
[2022-07-01 06:30] LABS: Platelet Count 173 K/mm3 (150-450)
[2022-07-01 06:46] LABS: International Normalized Ratio 1.3; Prothrombin Time (Protime)PT. 16.2 SECONDS (11.7-14.9)
[2022-07-01 07:14] LABS: Albumin, Serum 3.2 g/dL (3.2-5.0); BUN 112 mg/dL (7-18); BUN/Creat Ratio 9.7 RATIO (10-20); Calcium,Total 6.2 mg/dL (8.5-10.1); Chloride 113 mmol/L (98-107); EST Glomerular Filtration Rate 5 mL/min (>60); Est Glom Filt Rate - Afr Amer 6 mL/min (>60); Estimated Creatinine Clearance 7.09 ml/min; Glucose 94 mg/dL (74-106); Phosphorus 8.6 mg/dL (2.5-4.9); Potassium 5.1 mmol/L (3.5-5.1); Sodium Level 138 mmol/L (136-145)
--- NOTE | 2022-07-01 09:17 | PCM.PN.HOSP ---
Reason for Visit Reason for Visit: Diagnoses Anemia in chronic kidney disease (06/29/22) Arteriovenous fistula, acquired (06/29/22) Chronic kidney disease, stage 5 (06/29/22) Chronic kidney disease, unspecified (06/29/22) Objective Data Objective Data Vital Signs: Vital Signs Temp Pulse Resp BP Pulse Ox O2 Del Method 98.4 F 59 L 16 100/66 96 Room Air 07/01/22 04:55 07/01/22 04:55 07/01/22 04:55 07/01/22 04:55 07/01/22 07:34 07/01/22 07:34 Oxygen Delivery Method Room Air Weight: 156 lb 11.979 oz Body Mass Index (BMI) 23.1 Intake & Output: Intake and Output for Last 24 Hours 06/29/22 06/30/22 07/01/22 23:59 23:59 23:59 Intake Total 1110 / 1330 2620 / 2620 Output Total 450 / 450 600 / 600 Balance 660 / 880 2019 Medical Nutrition Assessment Dietitian: Malnutrition Criteria Met Start: 06/30/22 15:22 Freq: Status: Active Protocol: Document 06/30/22 15:22 LO (Rec: 06/30/22 15:22 LO [id number]) Nutrition Malnutrition Evidence of Malnutrition Exists Yes Malnutrition (severe): Acute Illness/Injury Evidenced By Suboptimal Energy Intake ( Severe),Weight Loss (Severe) Clinical Problem Altered Nutrient-Related Laboratory Values Etiology related to CKD5 Signs/Symptoms as evidenced by BUN 103, creatinine 11.10, GFR 5 Status Active Problem Acute Disease or Injury Related Malnutrition Etiology severe related to CKD 5, nausea, vomiting Signs/Symptoms as evidenced by <50% intake of estimated energy needs for 7 days and 3% weight loss in 1 week. Status Active Problem Recommendation Dietitian Recommendations/Changes Change diet to Renal -protein restricted diet, will add CCD diet to help manage blood sugars. If pt starts dialysis, recommend changing diet to Renal General/CCD. Will hold off on ONS due to renal lab values. Lab / Micro Data Result Diagrams: 07/01/22 05:24 07/01/22 05:24 Labs: Laboratory Results - last 24 hr 06/29/22 10:15: Blood Type O POSITIVE, Antibody Screen NEGATIVE, Crossmatch See Detail 06/29/22 10:15: Hep Bs Antigen Non-Reactive, Hep Bs Antibody Non-Reactive 07/01/22 05:24: Retic Count 1.20, Immature Retic Fraction 4.10, Retic Hgb Equivalent 32.0 07/01/22 05:24: Sodium 138, Potassium 5.1, Chloride 113 H, Carbon Dioxide 15.0 L, BUN 112 H*, Creatinine 11.50 H*, Estim Creat Clear Calc 7.09, Est GFR (MDRD) Af Amer 6 L, Est GFR (MDRD) Non-Af 5 L, BUN/Creatinine Ratio 9.7 L, Glucose 94, Calcium 6.2 L*, Phosphorus 8.6 H, Albumin 3.2 07/01/22 05:24: WBC 8.7, RBC 2.44 L, Hgb 7.4 L, Hct 22.8 L, MCV 93.4, MCH 30.3, MCHC 32.5, RDW Std Deviation 44.5 H, RDW Coeff of Moody 13.0, Plt Count 173, MPV 11.5, Immature Gran % (Auto) 0.300, Neut % (Auto) 59.3, Lymph % (Auto) 26.1, [place] % (Auto) 11.3 H, Eos % (Auto) 2.4, Baso % (Auto) 0.6, Absolute Neuts (auto) 5.2, Absolute Lymphs (auto) 2.27, Nucleated RBC % 0 07/01/22 05:24: PT 16.2 H, INR 1.3 07/01/22 05:24: Sodium Cancelled, Potassium Cancelled, Chloride Cancelled, Carbon Dioxide Cancelled, Anion Gap Cancelled, BUN Cancelled, Creatinine Cancelled, Estim Creat Clear Calc Cancelled, Est GFR (MDRD) Af Amer Cancelled, Est GFR (MDRD) Non-Af Cancelled, BUN/Creatinine Ratio Cancelled, Glucose Cancelled, Calcium Cancelled Micro: Microbiology 06/30/22 20:35 Stool Stool Occult Blood (ROB) - Final Radiography Diagnostic Testing: Radiology Impression Echocardiogram 06/29/22 19:22 Interpretation Summary The estimated ejection fraction is 55-60 %. Previous echocardiogram to compare Limited studies. Ordering Physician: Jeferson Henson Performed By: Nakul Aguilar RCS Physical Exam Narrative Seen and examined. Patient had ultrasound duplex of left forearm AV fistula. It was found not functional therefore Dr. Adkins updated and plan for permacath. Physical exam General: Alert, Oriented x3, Cooperative HEENT: Pale conjunctive a. Atraumatic, PERRLA, EOMI, Normocephalic Oral: Oral mucosa moist. No Gingival or Mucosal Lesions/ Ulcerations Neck: Supple, No JVD, Negative Carotid Bruits Lungs: Air entry diminished in bilateral lung bases. No crepitation/rhonchi Cardiovascular: Regular rate, Regular Rhythm, Normal S1, Normal S2, No murmurs/gallop or rub Abdomen: Soft, midline surgical scar present. No obvious hernia. Bowel Sounds Present, Non Tender, Non-Distended : No renal angle tenderness. No suprapubic tenderness. Extremities: AV fistula on left forearm. Palpable thrill present but not pulsatile. No edema, Capillary Refill Less than 3 Seconds Skin: No rashes, No breakdown Musculoskeletal: No Tenderness to Palpation of Joints or Extremities Neurological: Cranial nerves II-XII grossly intact, DTR 2+/4 and Symmetrical, Neuro grossly intact Psych/Mental Status: Normal Affect, Appropriate. Assessment & Plan Assessment/Plan (1) CKD (chronic kidney disease), stage V: (2) Anemia in chronic kidney disease (CKD): PLAN: Plan 57-year-old gentleman is being admitted for nausea vomiting for the past 5 days. Found to have CKD stage V progressively worsening and severe anemia 1. Progressive worsening of CKD stage V: Patient is being admitted in PCU. Discussed with the laundry worker, Dr. Monteiro. I also called patient's laundry worker Dr. Holland in [facility], [place] [phone]. Detailed conversation documented in HPI. He agrees with starting the dialysis. Patient might have nausea vomiting from uremia. Patient had 1 L normal saline in ED. Started on half-normal saline at 100 mill per hour. Chloride is 110. Patient has left forearm AV fistula with good palpable thrill. Kidney ultrasound reported the renal cortices are echogenic bilaterally suggestive of medical renal disease. Multiple bilateral renal cysts. Mild atrophy of the left kidney. UA, urine electrolytes, urine protein creatinine ratio ordered. 06/30: Patient does not have signs and symptoms of hypervolemia. Nausea and vomiting has subsided. Phosphorus 8.3. Magnesium 1.6. UA is bland with protein 15, LE negative, WBC 0 RBC 0, bacteria 0. Urine protein/creatinine ratio elevated 533 milligram/gram Cr. Urine sodium 93, potassium 14. Discussed with the laundry worker. AV fistula is not pulsatile probably thrombosed/nonfunctioning. I called Dr. Adkins who recommended vascular surgeon for fistulogram/permacath. Vascular surgery called and consult requested. Patient is not emergent need of dialysis. 07/01: Ultrasound of AV fistula shows occluded left radiocephalic fistula just beyond anastomosis. Patent radial artery with normal waveform. Patent upper arm cephalic vein. Dr. Adkins was updated and plan for permacath when the OR available. Hemodialysis afterwards. Potassium 5.1 mild hyperkalemia. BUNs/creatinine 112/11.5. Anion gap 10 therefore normal anion gap metabolic acidosis. Patient not having any uremic symptoms of nausea or vomiting. 2. Severe chronic symptomatic anemia, most likely due to CKD stage V: Patient hemoglobin is 7.8, MCV 95.4 and platelet count 209,000. Patient might have palpitation dyspnea on exertion from anemia and chronic kidney disease. 2D echo ordered. Anemia work-up ordered. Stool for occult blood ordered patient does not need transfusion. Gallbladder ultrasound shows nonvisualization of pancreas and gallbladder. Nonobstructive right intrarenal calculus. 06/30: Iron work-up shows high iron 220, ferritin 524. Folate normal. B12 531. Overall it is suggestive of anemia due to CKD. Hemoglobin decreased to 6.6. MCV 96. Platelet count 169 K. Plan for PRBC transfusion during dialysis. 07/01:Reticulocyte count 1.2%, immature reticulocyte fraction 4.1% in normal range. It rules out hemolysis or hemolytic anemia. 3. Hypocalcemia: Patient calcium is 6.1. Albumin 3.7. Corrected calcium 6.3. Patient was given calcium gluconate 1 g in ED. Serum phosphorous and magnesium ordered. 06/30: Repeat calcium 5.8. Will leave on laundry worker for decision for replacement for replacement 4. History of polysubstance use: U tox ordered. VTE prophylaxis contraindicated in view of severe anemia. Bilateral SCDs Living will/advanced directive/end of life care: Patient does not have living will or advanced directive. After discussion of benefits/risks procedures involved with full code, DNR CC arrest and DNR CC, the patient opted for full code. He does not have designated power of hairspring fabrication supervisor for health. His next of kin is his girlfriend, significant others Ms. Cathleen Paniagua. Patient does want artificial life support including intubation, tube feed, ventilator and/chest compression, central venous catheter, vasopressor and DC shock if needed Total time spent in [id number] encounter in discussion of advanced directive 17 minutes. Clinical Impression(s) from Imaging Studies Gallbladder Ultrasound 06/29/22 11:30 IMPRESSION: Nonvisualization of the pancreas and the gallbladder. Right renal cyst. Nonobstructive right intrarenal calculus. Renal Ultrasound 06/29/22 11:30 IMPRESSION: The renal cortices are echogenic bilaterally suggestive of medical renal disease. Multiple bilateral renal cysts. Mild atrophy of the left kidney. Chest X-Ray 06/29/22 12:21 IMPRESSION: Normal x-ray examination of the chest. Charges/Coding Visit Charges Inpatient E&M: 99094 Subs Hosp L2
--- NOTE | 2022-07-01 09:24 | PN.RENAL_ITS ---
Subjective Subjective Resting quietly. No complaints. No overnight events. Objective Data Objective Data Vital Signs: Vital Signs Temp Pulse Resp BP Pulse Ox O2 Del Method 98.4 F 59 L 16 100/66 96 Room Air 07/01/22 04:55 07/01/22 04:55 07/01/22 04:55 07/01/22 04:55 07/01/22 07:34 07/01/22 07:34 Oxygen Delivery Method Room Air Weight: 71.1 kg Body Mass Index (BMI) 23.1 Intake & Output: Intake and Output for Last 24 Hours 06/29/22 06/30/22 07/01/22 23:59 23:59 23:59 Intake Total 1110 / 1330 2620 / 2620 Output Total 450 / 450 600 / 600 Balance 660 / 880 2019 Medical Nutrition Assessment Dietitian: Malnutrition Criteria Met Start: 06/30/22 15:22 Freq: Status: Active Protocol: Document 06/30/22 15:22 LO (Rec: 06/30/22 15:22 [id number]) Nutrition Malnutrition Evidence of Malnutrition Exists Yes Malnutrition (severe): Acute Illness/Injury Evidenced By Suboptimal Energy Intake ( Severe),Weight Loss (Severe) Clinical Problem Altered Nutrient-Related Laboratory Values Etiology related to CKD5 Signs/Symptoms as evidenced by BUN 103, creatinine 11.10, GFR 5 Status Active Problem Acute Disease or Injury Related Malnutrition Etiology severe related to CKD 5, nausea, vomiting Signs/Symptoms as evidenced by <50% intake of estimated energy needs for 7 days and 3% weight loss in 1 week. Status Active Problem Recommendation Dietitian Recommendations/Changes Change diet to Renal -protein restricted diet, will add CCD diet to help manage blood sugars. If pt starts dialysis, recommend changing diet to Renal General/CCD. Will hold off on ONS due to renal lab values. Lab / Micro Data Result Diagrams: 07/01/22 05:24 07/01/22 05:24 Labs: Laboratory Results - last 24 hr 06/29/22 10:15: Blood Type O POSITIVE, Antibody Screen NEGATIVE, Crossmatch See Detail 06/29/22 10:15: Hep Bs Antigen Non-Reactive, Hep Bs Antibody Non-Reactive 07/01/22 05:24: Retic Count 1.20, Immature Retic Fraction 4.10, Retic Hgb Equivalent 32.0 07/01/22 05:24: Sodium 138, Potassium 5.1, Chloride 113 H, Carbon Dioxide 15.0 L , BUN 112 H*, Creatinine 11.50 H*, Estim Creat Clear Calc 7.09, Est GFR (MDRD) Af Amer 6 L, Est GFR (MDRD) Non-Af 5 L, BUN/Creatinine Ratio 9.7 L, Glucose 94, Calcium 6.2 L*, Phosphorus 8.6 H, Albumin 3.2 07/01/22 05:24: WBC 8.7, RBC 2.44 L, Hgb 7.4 L, Hct 22.8 L, MCV 93.4, MCH 30.3, MCHC 32.5, RDW Std Deviation 44.5 H, RDW Coeff of Moody 13.0, Plt Count 173, MPV 11.5, Immature Gran % (Auto) 0.300, Neut % (Auto) 59.3, Lymph % (Auto) 26.1, [place] % (Auto) 11.3 H, Eos % (Auto) 2.4, Baso % (Auto) 0.6, Absolute Neuts (auto) 5.2, Absolute Lymphs (auto) 2.27, Nucleated RBC % 0 07/01/22 05:24: PT 16.2 H, INR 1.3 07/01/22 05:24: Sodium Cancelled, Potassium Cancelled, Chloride Cancelled, Carbon Dioxide Cancelled, Anion Gap Cancelled, BUN Cancelled, Creatinine Cancelled, Estim Creat Clear Calc Cancelled, Est GFR (MDRD) Af Amer Cancelled, Est GFR (MDRD) Non-Af Cancelled, BUN/Creatinine Ratio Cancelled, Glucose Cancelled, Calcium Cancelled Micro: Microbiology 06/30/22 20:35 Stool Stool Occult Blood (ROB) - Final Radiography Diagnostic Testing: Radiology Impression Echocardiogram 06/29/22 19:22 Interpretation Summary The estimated ejection fraction is 55-60 %. Previous echocardiogram to compare Limited studies. Ordering Physician: Jeferson Henson Performed By: Nakul Aguilar [facility] Physical Exam Narrative Alert and oriented x3, no apparent distress S1, S2, RRR Lung sounds clear anteriorly and posteriorly no wheezes, rhonchi or rales noted Abdomen soft, nontender, positive bowel sounds x4 quadrants No edema noted to bilateral lower legs feet or arms Left forearm AV fistula unable to auscultate bruit, unable to palpate thrill. Assessment & Plan Assessment/Plan (1) CKD (chronic kidney disease), stage V: (2) Anemia in chronic kidney disease (CKD): (3) Metabolic acidosis: PLAN: Plan - New ESRD; patient has a known history of CKD and patient's kitchen cleaner, Dr. Holland (in [place]) was contacted on admission by Dr. Henson. Apparently in October 2021 serum creatinine 5 mg/dL and in April 2022 serum creatinine 4.82. In anticipation for eventual hemodialysis patient did undergo creation left forearm AV fistula in January 2022. Today patient's creatinine is 11.50, potassium 5.1, bicarb 15. It appears patient has had some progression of CKD now needing renal replacement therapy. Patient does have uremic symptoms, he is not hypervolemic. In anticipation for eventual hemodialysis patient did undergo creation left arm AV fistula however there is no thrill or bruit. Surgery team has been consulted for placement of tunneled HD catheter. Vascular team also consulted to evaluate AV fistula if able to be salvaged. Once access obtained for hemodialysis we will plan for dialysis over 2 hours with no UF on 2K bath. community arts worker and discharge planning team working on arranging outpatient dialysis in [place]. -Metabolic acidosis secondary to renal failure. Bicarb level should improve once PHYSICAL DESIGN ENGINEER started. We will continue sodium bicarbonate tablets for now. -Anemia of chronic disease; hemoglobin improved status post 1 unit PRBC. Patient will begin iron and LINDA once at outpatient hemodialysis -Phosphorus 8.6, calcium 6.2. Increase PhosLo 2 tablets with every meal. Monitor phosphorus levels periodically. -Disposition; working on establishing outpatient dialysis center in [place].
[2022-07-01 10:08] LABS: Hepatitis B Core Ab Total Negative (Negative)
--- NOTE | 2022-07-01 14:17 | CON.PCM.SX_ITS ---
Assessment & Plan Assessment/Plan (1) CKD (chronic kidney disease), stage V: PLAN: I have been consulted in conjunction with Dr. Adkins. He will independently evaluate this patient. Dr. Adkins will plan to perform a right possible left amador st tunneled dialysis catheter placement. Procedure details, risks and benefits have been explained. Patient is aware a post-operative chest x-ray will be completed. Patient is NPO. Patient has had the opportunity to ask and have questions answered. Patient verbally understands and agrees with the plan. Plan is to proceed today once OR time is available. Thank you for allowing us to participate in this patient's care. HPI Consult Data Date of Consult: 07/01/22 HPI Narrative Reason for Consultation: Tunneled dialysis catheter placement HPI Narrative: PERRY POPE, is a 57 M who presents with generalized weakness. 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 He notes he had a left radiocephalic AV fistula created in January of 2022 at the [facility] in [place]. Patient states he has never been on dialysis. He notes the fistula was created in case dialysis was needed. Patient states he has never had a tunneled dialysis catheter. Patient notes his wildlife biologist is also at the [facility]. Upon admission, patient's creatinine and BUN were significantly elevated. Patient needed to start dialysis upon admission. Patient's fistula appeared to have failed and was confirmed by imaging that it had in fact occluded. Our services were consulted to have a tunneled dialysis catheter placed. Patient notes he had a PICC line in his left chest in 2011. He notes a past history of Heroin abuse, however has been clean for approximately 8 years. Patient denies nausea, vomiting with anesthesia. He denies any previous myocardial infarction, stroke. He denies blood thinners. He denies any pacemaker/defibrillator, cardiac stents. [facility] Medical History Anemia History of spleen injury Ischemia, bowel Kidney disease Home Medications calcium acetate 667 mg tablet 667 mg PO TID BINDER 06/29/22 [History Last Taken 06/27/22] cholecalciferol (vitamin D3) 50 mcg (2,000 unit) capsule 50 mcg PO BID SUPPLEMENT 06/29/22 [History Last Taken 06/27/22] ferrous sulfate 325 mg (65 mg iron) tablet 325 mg PO BID SUPPLEMENT 06/29/22 [History Last Taken 06/27/22] magnesium 200 mg tablet 600 mg PO BID SUPPLEMENT 06/29/22 [History Last Taken 06/27/22] sodium bicarbonate 650 mg tablet 1,950 mg PO BID SUPPLEMENT 06/29/22 [History Last Taken 06/27/22] tamsulosin 0.4 mg capsule 0.4 mg PO QHS PROSTATE 06/29/22 [History Last Taken 06/27/22] zinc gluconate 50 mg tablet 50 mg PO BID SUPPLEMENT 06/29/22 [History Last Taken 06/27/22] Allergy/AdvReac Type Severity Reaction Status Date / Time No Known Allergies Allergy Verified 06/29/22 09:49 Social History Smoking Status: Former smoker ROS Constitutional Constitutional: Reports malaise and weakness Eyes Eyes: Reports systems reviewed and no addt'l complaints, except as documented ENT HEENT: Reports systems reviewed and no addt'l complaints, except as documented Cardiovascular Cardiovascular: Reports systems reviewed and no addt'l complaints, except as documented Respiratory/Chest Respiratory/Chest: Reports systems reviewed and no addt'l complaints, except as documented Gastrointestinal Gastrointestinal: Reports systems reviewed and no addt'l complaints, except as documented Genitourinary Genitourinary: Reports systems reviewed and no addt'l complaints, except as documented Musculoskeletal Musculoskeletal: Reports systems reviewed and no addt'l complaints, except as documented Integumentary Integumentary: Reports systems reviewed and no addt'l complaints, except as documented Neurologic Neurologic: Reports systems reviewed and no addt'l complaints, except as documented Psychiatric Psychiatric: Reports systems reviewed and no addt'l complaints, except as documented Endocrine Endocrinology: Reports systems reviewed and no addt'l complaints, except as documented Hematologic/Lymphatic Hematologic/Lymphatic: Reports systems reviewed and no addt'l complaints, except as documented Allergic/Immunologic Allergic/Immunologic: Reports systems reviewed and no addt'l complaints, except as documented Physical Exam Const alert, oriented x3 and no apparent distress HEENT normocephalic Eyes PERRL Neck full ROM Lymph Lymphatic: no lymphadenopathy noted Chest inspection of chest normal Resp normal respiratory effort and clear to auscultation bilaterally Cardio regular rate and regular rhythm GI normal to inspection, nondistended, normoactive bowel sounds no CVA tenderness Back/Spine no CVA tenderness Extremity normal to inspection Skin Skin Narrative: Multiple tattoos Neuro no focal motor deficits and no sensory deficits noted Psych mental status grossly normal Medical Records Data Medical Nutrition Assessment Dietitian: Malnutrition Criteria Met Start: 06/30/22 15:22 Freq: Status: Active Protocol: Document 06/30/22 15:22 LO (Rec: 06/30/22 15:22 [id number]) Nutrition Malnutrition Evidence of Malnutrition Exists Yes Malnutrition (severe): Acute Illness/Injury Evidenced By Suboptimal Energy Intake ( Severe),Weight Loss (Severe) Clinical Problem Altered Nutrient-Related Laboratory Values Etiology related to CKD5 Signs/Symptoms as evidenced by BUN 103, creatinine 11.10, GFR 5 Status Active Problem Acute Disease or Injury Related Malnutrition Etiology severe related to CKD 5, nausea, vomiting Signs/Symptoms as evidenced by <50% intake of estimated energy needs for 7 days and 3% weight loss in 1 week. Status Active Problem Recommendation Dietitian Recommendations/Changes Change diet to Renal -protein restricted diet, will add CCD diet to help manage blood sugars. If pt starts dialysis, recommend changing diet to Renal General/CCD. Will hold off on ONS due to renal lab values. Lab / Micro Data Result Diagrams: 07/01/22 05:24 07/01/22 05:24 Labs: Laboratory Results - last 24 hr 06/29/22 10:15: Hep B Core Total Ab Negative 07/01/22 05:24: Retic Count 1.20, Immature Retic Fraction 4.10, Retic Hgb Equivalent 32.0 07/01/22 05:24: Sodium 138, Potassium 5.1, Chloride 113 H, Carbon Dioxide 15.0 L , BUN 112 H*, Creatinine 11.50 H*, Estim Creat Clear Calc 7.09, Est GFR (MDRD) Af Amer 6 L, Est GFR (MDRD) Non-Af 5 L, BUN/Creatinine Ratio 9.7 L, Glucose 94, Calcium 6.2 L*, Phosphorus 8.6 H, Albumin 3.2 07/01/22 05:24: WBC 8.7, RBC 2.44 L, Hgb 7.4 L, Hct 22.8 L, MCV 93.4, MCH 30.3, MCHC 32.5, RDW Std Deviation 44.5 H, RDW Coeff of [place] 13.0, Plt Count 173, MPV 11.5, Immature Gran % (Auto) 0.300, Neut % (Auto) 59.3, Lymph % (Auto) 26.1, [place] % (Auto) 11.3 H, Eos % (Auto) 2.4, Baso % (Auto) 0.6, Absolute Neuts (auto) 5.2, Absolute Lymphs (auto) 2.27, Nucleated RBC % 0 07/01/22 05:24: PT 16.2 H, INR 1.3 07/01/22 05:24: Sodium Cancelled, Potassium Cancelled, Chloride Cancelled, Carbon Dioxide Cancelled, Anion Gap Cancelled, BUN Cancelled, Creatinine Cancelled, Estim Creat Clear Calc Cancelled, Est GFR (MDRD) Af Amer Cancelled, Est GFR (MDRD) Non-Af Cancelled, BUN/Creatinine Ratio Cancelled, Glucose Cancelled, Calcium Cancelled Micro: Microbiology 06/30/22 20:35 Stool Stool Occult Blood (ROB) - Final Radiology Impression Echocardiogram 06/29/22 19:22 Interpretation Summary The estimated ejection fraction is 55-60 %. Previous echocardiogram to compare Limited studies. Ordering Physician: Jeferson Henson Performed By: Nakul Aguilar RCS A/V Fistula Ultrasound 06/30/22 13:37 Interpretation Summary Occluded left radio-cephalic fistula just beyond anastomosis. Patent radial artery with normal waveforms Patent upper arm cephalic vein Ordering Physician: Katlin Castanon Referring Physician: [facility] Performed By: Michael Muro RVT Charges/Coding Visit Charges Office Visits / Consults: [id number] IP Consult L3
--- NOTE | 2022-07-01 15:20 | CASEMGMT ---
STEPHANIE CM called Dr Holland, sailmaker at [facility] in [place]. Per Dr. Holland, patient should be setup for outpatient HD with [facility] at [facility]. Patient is currently at surgery. Referral started on [facility] portal. CM will continue to follow this patient and plan for a safe discharge.
[2022-07-01] MEDS: Cefazolin 2 GM in 0.9% Normal Saline 100 ML IV (16:37)
[2022-07-01] MEDS: Bupivacaine Mpf 0.5% 30 ML VIAL (16:55)
[2022-07-01] MEDS: Heparin 10,000 UNITS/10 ML Vial 10000 UNITS (17:20)
--- NOTE | 2022-07-01 17:34 | PCM.OPRPT ---
Report of Operation Date of Procedure: 07/01/22 Pre-Operative Diagnosis: New end-stage renal disease requiring access for hemodialysis Post-Operative Diagnosis: Same Surgery/Procedure Performed:: Ultrasound-guided placement of palindrome hemodialysis catheter Description of Surgical Findings:: ? Widely patent internal jugular vein with valves ? Termination of hemodialysis catheter below the brandin in the area of the distal SVC Surgeon: Nato Adkins Type of Anesthesia: MAC/Supplemental Anesthesiologist: Dexter Wiseman Specimen's removed: NA Drains: NA Estimated Blood Loss (mL): 10 Description of Procedure: After appropriate identification in the preoperative holding area the patient was brought to the operating room where they were positioned supine on the operating room table. Preoperative antibiotics were completely administered. Sedation was begun per anesthesia and the patient's bilateral neck was prepped and draped in usual sterile fashion after confirming patency of the right internal jugular vein with bedside ultrasound. Formal timeout was conducted to confirm both the patient and the procedure. Procedure was begun with ultrasound-guided access of the right internal jugular vein using a micropuncture access kit. Fluoroscopy confirmed appropriate position of the wire and the micro access sheath. At this point I made a measurement from the insertion site to the mid atrium of approximately 14 cm. Desiring some room for the patient's tunneling/cuff placement, elected to proceed with a 19 cm catheter. The 035 guidewire from the catheter kit was placed through the micro access sheath and again fluoroscopy was used to confirm this placement. The insertion site was then enlarged sharply and bluntly. Measuring back from the proximal insertion site on the catheter, we determined that the tunneling site would need to be at least 7 cm away from the insertion site. Therefore this was measured out on the patient's chest and a counterincision was made at this point after instilling local anesthetic. A gentle curve of the tunneling tract to the insertion site was also instilled with local anesthetic. Then the catheter was connected to the tunneling device and was tunneled to the insertion site. Next the insertion site was serially dilated and the peel-away sheath was placed under fluoroscopy. The catheter was fed through the peel-away sheath and once we neared completion another fluoroscopy image was obtained. Functionally, the catheter was tested with aspiration and flush of injectable saline which it did with ease. The insertion site was then closed with a single interrupted 3-0 nylon stitch. Another 3-0 nylon stitch was used to close down the insertion site at the tunneling entrance as a means of creating a cerclage about the catheter. Lastly, the catheter was secured at the tiedown points on each port with a interrupted 3-0 nylon. Now the catheter was locked with 2.0 mL heparinized saline (concentration 1000 units/mL) per package specification. A chlorhexidine gel dressing was placed about the tunneling exit site and the distal catheter ports. A small OpSite was applied to the insertion site. Patient was then allowed to emerge from sedation and was taken to PACU in stable condition. A chest x-ray was ordered in PACU for review of the catheter placement and to exclude pneumothorax. Grafts/Implants Used: [employer] catheter 14.5 Fr ref [id number] Complications None Procedures Cardiovascular CF Procedures [id number]-[id number]: [id number] Insert tunneled cv cath
--- NOTE | 2022-07-01 17:45 | RAD_ITS ---
STUDY: X-RAY CHEST REASON FOR EXAM: Male, 57 years old. Status post catheter placement. TECHNIQUE: Single AP portable view of the chest. COMPARISON: June 30, 2019 FINDINGS: There is now a large bore right jugular catheter with its tip in the distal superior vena cava. No pneumothorax. The lungs are clear and expanded. No new infiltrate or mass. There is no demonstrated pleural abnormality. Normal size heart. Normal mediastinum and bea. Normal visualized pulmonary arteries. Normal visualized aortic arch and descending thoracic aorta. Normal visualized thoracic spine. Normal visualized ribs, clavicles, and shoulders. There is no demonstrated abnormality of the visualized soft tissue structures of the upper abdomen. RAD/CXR for Line Placement IMPRESSION: Right jugular hemodialysis catheter without pneumothorax or other major interval change Electronically Signed: Artur Buckner DO at 18:00 EDT ,
[2022-07-01] MEDS: Magnesium Chloride 64 MG Delay Rel.Tablet 128 MG PO (20:37)
[2022-07-01] MEDS: Tamsulosin HCl 0.4 MG Capsule PO (20:37)
[2022-07-01] MEDS: Sodium Bicarbonate 650 MG Tablet 1950 MG PO (20:38)
[2022-07-01] MEDS: Cholecalciferol (VIT D3) 25 MCG TABLET (1,000 UNITS) 50 MCG PO (20:39)
[2022-07-02 04:00] VITALS: BP 119/76; PULSE 70; RESP 18; TEMP 37.2; O2SAT 95
[2022-07-02] MEDS: Acetaminophen 325 MG Tablet 650 MG PO (04:00)
[2022-07-02] MEDS: oxyCODONE 5 MG Tablet PO (04:27)
[2022-07-02] MEDS: Sodium Bicarbonate 650 MG Tablet 1950 MG PO ×3 (04:28→21:29)
--- NOTE | 2022-07-02 05:55 | EKG12_ITS ---
Test Reason : AM EKG Blood Pressure : / mmHG Vent. Rate : 062 BPM Atrial Rate : 062 BPM P-R Int : 156 ms QRS Dur : 108 ms QT Int : 432 ms P-R-T Axes : 058 042 065 degrees QTc Int : 438 ms Normal sinus rhythm Normal ECG When compared with ECG of 29-JUN-2022 10:03, MANUAL COMPARISON REQUIRED, DATA IS UNCONFIRMED Confirmed by MAURA ROCKWELL, SAY ([id number]), index editor CARIE ULLOA ([id number]) on 07/06/2022 10:34:00 AM Referred By: Confirmed By:SAY LORENZO MD
[2022-07-02 05:57] VITALS: BMI 23.1
[2022-07-02 07:25] LABS: Albumin, Serum 3.1 g/dL (3.2-5.0); BUN 111 mg/dL (7-18); BUN/Creat Ratio 9.4 RATIO (10-20); Calcium,Total 6.6 mg/dL (8.5-10.1); Chloride 110 mmol/L (98-107); EST Glomerular Filtration Rate 5 mL/min (>60); Est Glom Filt Rate - Afr Amer 6 mL/min (>60); Estimated Creatinine Clearance 6.91 ml/min; Glucose 124 mg/dL (74-106); Phosphorus 7.6 mg/dL (2.5-4.9); Potassium 4.4 mmol/L (3.5-5.1); Sodium Level 135 mmol/L (136-145)
[2022-07-02 08:00] VITALS: BP 121/78; PULSE 60; RESP 16; TEMP 2.5; TEMP 36.5
--- NOTE | 2022-07-02 08:25 | PN.SURG_ITS ---
Subjective Subjective Patient seen and examined during AM rounds. He complains of some mild discomfort over his collarbone, but otherwise has been doing well. Hemodialysis nursing was just preparing to start therapy on my arrival to the room, but I have later confirmed with primary team that dialysis was completed without difficulty and the catheter placed yesterday function well. Objective Data Objective Data Vital Signs: Vital Signs Temp Pulse Resp BP Pulse Ox O2 Del Method 99 F 70 18 119/76 95 Room Air 07/02/22 04:00 07/02/22 04:00 07/02/22 04:00 07/02/22 04:00 07/02/22 04:00 07/02/22 04:00 Oxygen Delivery Method Room Air Weight: 156 lb 15.506 oz Body Mass Index (BMI) 23.1 Intake & Output: Intake and Output for Last 24 Hours 06/30/22 07/01/22 07/02/22 23:59 23:59 23:59 Intake Total 2620 / 2620 110 / 110 Output Total 600 / 600 Balance 2019 110 / 110 Medical Nutrition Assessment Dietitian: Malnutrition Criteria Met Start: 06/30/22 15:22 Freq: Status: Active Protocol: Document 06/30/22 15:22 LO (Rec: 06/30/22 15:22 [id number]) Nutrition Malnutrition Evidence of Malnutrition Exists Yes Malnutrition (severe): Acute Illness/Injury Evidenced By Suboptimal Energy Intake ( Severe),Weight Loss (Severe) Clinical Problem Altered Nutrient-Related Laboratory Values Etiology related to CKD5 Signs/Symptoms as evidenced by BUN 103, creatinine 11.10, GFR 5 Status Active Problem Acute Disease or Injury Related Malnutrition Etiology severe related to CKD 5, nausea, vomiting Signs/Symptoms as evidenced by <50% intake of estimated energy needs for 7 days and 3% weight loss in 1 week. Status Active Problem Recommendation Dietitian Recommendations/Changes Change diet to Renal -protein restricted diet, will add CCD diet to help manage blood sugars. If pt starts dialysis, recommend changing diet to Renal General/CCD. Will hold off on ONS due to renal lab values. Lab / Micro Data Result Diagrams: 07/01/22 05:24 07/02/22 05:40 Labs: Laboratory Results - last 24 hr 06/29/22 10:15: Hep B Core Total Ab Negative 07/02/22 05:40: Sodium 135 L, Potassium 4.4, Chloride 110 H, Carbon Dioxide 16.0 L, BUN 111 H*, Creatinine 11.80 H*, Estim Creat Clear Calc 6.91, Est GFR (MDRD) Af Amer 6 L, Est GFR (MDRD) Non-Af 5 L, BUN/Creatinine Ratio 9.4 L, Glucose 124 H, Calcium 6.6 L, Phosphorus 7.6 H, Albumin 3.1 L Micro: Microbiology 06/30/22 20:35 Stool Stool Occult Blood (ROB) - Final Radiography Diagnostic Testing: Radiology Impression A/V Fistula Ultrasound 06/30/22 13:37 Interpretation Summary Occluded left radio-cephalic fistula just beyond anastomosis. Patent radial artery with normal waveforms Patent upper arm cephalic vein Ordering Physician: Katlin Castanon Referring Physician: [facility] Performed By: Michael Muro, T Chest X-Ray 07/01/22 17:45 IMPRESSION: Right jugular hemodialysis catheter without pneumothorax or other major interval change Electronically Signed: Artur Buckner DO at 18:00 EDT Reading Location ID and State: [address] [place] [address] Tel [phone], Service support , Physical Exam Narrative Patient's right chest catheter appears appropriate with no underlying hematoma visible or palpable. There is no spreading redness from the catheter site and the ties are all intact beneath his chlorhexidine dressing. Const oriented x3 and no apparent distress Resp normal respiratory effort Assessment & Plan Assessment/Plan (1) Complication of vascular access for dialysis: (2) Status post insertion of dialysis catheter: PLAN: Plan This is a 57-year-old male who had failure of his left AV fistula and required urgent placement of a chronic, tunneled hemodialysis catheter yesterday in the OR. The procedure was completed uneventfully and the patient was returned to the hospital [facility] for ongoing care. Today the catheter appears appropriate by inspection and exam. I have confirmed with primary team that it functioned well during patient's first dialysis session today. With this confirmation, surgery will sign off, but remain available to patient/primary team if needed. Thank you for allowing the opportunity participate in Mr. Levy's care. Charges/Coding Visit Charges Inpatient E&M: 68043 Subs Hosp L2
--- NOTE | 2022-07-02 09:22 | PCM.PN.REN ---
Subjective Subjective Patient resting quietly in bed, no overnight events. Seen on dialysis. Denies any complaints. Objective Data Objective Data Vital Signs: Vital Signs Temp Pulse Resp BP Pulse Ox O2 Del Method 99 F 70 18 119/76 95 Room Air 07/02/22 04:00 07/02/22 04:00 07/02/22 04:00 07/02/22 04:00 07/02/22 04:00 07/02/22 04:00 Oxygen Delivery Method Room Air Weight: 71.2 kg Body Mass Index (BMI) 23.1 Intake & Output: Intake and Output for Last 24 Hours 06/30/22 07/01/22 07/02/22 23:59 23:59 23:59 Intake Total 2620 / 2620 110 / 110 Output Total 600 / 600 Balance 2019 110 / 110 Medical Nutrition Assessment Dietitian: Malnutrition Criteria Met Start: 06/30/22 15:22 Freq: Status: Active Protocol: Document 06/30/22 15:22 LO (Rec: 06/30/22 15:22 [id number]) Nutrition Malnutrition Evidence of Malnutrition Exists Yes Malnutrition (severe): Acute Illness/Injury Evidenced By Suboptimal Energy Intake ( Severe),Weight Loss (Severe) Clinical Problem Altered Nutrient-Related Laboratory Values Etiology related to CKD5 Signs/Symptoms as evidenced by BUN 103, creatinine 11.10, GFR 5 Status Active Problem Acute Disease or Injury Related Malnutrition Etiology severe related to CKD 5, nausea, vomiting Signs/Symptoms as evidenced by <50% intake of estimated energy needs for 7 days and 3% weight loss in 1 week. Status Active Problem Recommendation Dietitian Recommendations/Changes Change diet to Renal -protein restricted diet, will add CCD diet to help manage blood sugars. If pt starts dialysis, recommend changing diet to Renal General/CCD. Will hold off on ONS due to renal lab values. Lab / Micro Data Result Diagrams: 07/01/22 05:24 07/02/22 05:40 Labs: Laboratory Results - last 24 hr 06/29/22 10:15: Hep B Core Total Ab Negative 07/02/22 05:40: Sodium 135 L, Potassium 4.4, Chloride 110 H, Carbon Dioxide 16.0 L, BUN 111 H*, Creatinine 11.80 H*, Estim Creat Clear Calc 6.91, Est GFR (MDRD) Af Amer 6 L, Est GFR (MDRD) Non-Af 5 L, BUN/Creatinine Ratio 9.4 L, Glucose 124 H, Calcium 6.6 L, Phosphorus 7.6 H, Albumin 3.1 L Micro: Microbiology 06/30/22 20:35 Stool Stool Occult Blood (ROB) - Final Radiography Diagnostic Testing: Radiology Impression A/V Fistula Ultrasound 06/30/22 13:37 Interpretation Summary Occluded left radio-cephalic fistula just beyond anastomosis. Patent radial artery with normal waveforms Patent upper arm cephalic vein Ordering Physician: Katlin Castanon Referring Physician: [facility] Performed By: Michael Muro, RVChon Chest X-Ray 07/01/22 17:45 IMPRESSION: Right jugular hemodialysis catheter without pneumothorax or other major interval change Electronically Signed: Artur Buckner DO at 18:00 EDT Reading Location ID and State: [address] [place] [address] Tel [phone], Service support , Physical Exam Narrative Alert and oriented x3, no apparent distress S1, S2, RRR Lung sounds clear anteriorly and posteriorly no wheezes, rhonchi or rales noted Abdomen soft, nontender, positive bowel sounds x4 quadrants No edema noted to bilateral lower legs feet or arms Left forearm AV fistula no thrill or bruit Right chest tunneled HD catheter dressing clean, dry and intact Assessment & Plan Assessment/Plan (1) Anemia in chronic kidney disease (CKD): (2) Metabolic acidosis: PLAN: Plan - New ESRD; patient has a known history of CKD and 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 Holland (in [place]) was contacted on admission by Dr. Henson. Apparently in October 2021 serum creatinine 5 mg/dL and in April 2022 serum creatinine 4.82. In anticipation for eventual hemodialysis patient did undergo creation left forearm AV fistula in January 2022. Creatinine has been around 11. No improvement. It appears patient has had some progression of CKD now needing renal replacement therapy. Patient does have uremic symptoms, he is not hypervolemic. In anticipation for eventual hemodialysis patient did undergo creation left arm AV fistula however there is no thrill or bruit. Vascular team was consulted, AVF no longer viable; patient will need follow-up with vascular surgeon in [place]. Placement of tunneled HD catheter last evening. Patient to undergo first dialysis today over 2 hours with no UF. Plan for dialysis again tomorrow over 2.5 hours with no UF. 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 -Metabolic acidosis secondary to renal failure. Bicarb level should improve once [employer] started. We will continue sodium bicarbonate tablets for now but likely can stop at time of discharge. -Anemia of chronic disease; hemoglobin improved status post 1 unit PRBC. Patient will begin iron and LINDA once at outpatient hemodialysis -Phosphorus 8.6, calcium 6.2. Increased PhosLo 2 tablets with every meal. Monitor phosphorus levels periodically. -Disposition; working on establishing outpatient dialysis center in [place]. Once outpatient dialysis arranged and confirmed okay for discharge per nephrology standpoint.
--- NOTE | 2022-07-02 09:22 | DIALYSIS ---
Hemodialysis x 2 hours (1st dialysis treatment for this patient). Net UF 0. VSS, tolerated well, no complaints. Blood returned to patient at end of treatment. Education provided (infection prevention, treatment review). RN report at bedside.
[2022-07-02] MEDS: Heparin 10,000 UNITS/10 ML Vial IV (10:35)
--- NOTE | 2022-07-02 11:38 | CASEMGMT ---
STEPHANIE GARNER received call from Sergei at [facility] who is working on chair time. Sergei asking about patient's preferences for HD center and chair time. STEPHANIE GARNER to patient's room to ask preferences. Patient prefers [facility], no preferences on days of the week and states he prefers afternoon. STEPHANIE GARNER updated Sergei and provided Darletta STEPHANIE GARNER contact information. STEPHANIE GARNER sent updated clinical via [employer] portal. CM will continue to follow this patient and plan for a safe discharge.
[2022-07-02 12:26] VITALS: BP 126/76; PULSE 74; RESP 14; TEMP 37; O2SAT 96
[2022-07-02] MEDS: Calcium Acetate 667 MG Capsule 1334 MG PO ×2 (12:31→17:14)
[2022-07-02] MEDS: Cholecalciferol (VIT D3) 25 MCG TABLET (1,000 UNITS) 50 MCG PO ×2 (12:32→21:29)
[2022-07-02] MEDS: Ferrous Sulfate 325 MG Tablet PO (12:32)
[2022-07-02] MEDS: Magnesium Chloride 64 MG Delay Rel.Tablet 128 MG PO ×2 (12:32→21:28)
--- NOTE | 2022-07-02 12:59 | PN.HOSP_ITS ---
Reason for Visit Reason for Visit: Diagnoses Anemia in chronic kidney disease (06/29/22) Arteriovenous fistula, acquired (06/29/22) Chronic kidney disease, stage 5 (06/29/22) Chronic kidney disease, unspecified (06/29/22) Unspecified complication of cardiac and vascular prosthetic device, implant and graft, initial encounter (06/29/22) Presence of other vascular implants and grafts (06/29/22) Dependence on renal dialysis (06/29/22) Follow-up for new onset of hemodialysis, CKD stage V. Subjective Subjective Patient is undergoing dialysis. Dialysis started in the morning. Catheter flow is good. Objective Data Objective Data Vital Signs: Vital Signs Temp Pulse Resp BP Pulse Ox O2 Del Method 98.6 F 74 14 126/76 H 96 Room Air 07/02/22 12:26 07/02/22 12:26 07/02/22 12:26 07/02/22 12:26 07/02/22 12:26 07/02/22 12:26 Oxygen Delivery Method Room Air Weight: 156 lb 15.506 oz Body Mass Index (BMI) 23.1 Intake & Output: Intake and Output for Last 24 Hours 06/30/22 07/01/22 07/02/22 23:59 23:59 23:59 Intake Total 2620 / 2620 110 / 110 480 / 480 Output Total 600 / 600 Balance 2019 110 / 110 480 / 480 Medical Nutrition Assessment Dietitian: Malnutrition Criteria Met Start: 06/30/22 15:22 Freq: Status: Active Protocol: Document 06/30/22 15:22 GARIMA (Rec: 06/30/22 15:22 [id number]) Nutrition Malnutrition Evidence of Malnutrition Exists Yes Malnutrition (severe): Acute Illness/Injury Evidenced By Suboptimal Energy Intake ( Severe),Weight Loss (Severe) Clinical Problem Altered Nutrient-Related Laboratory Values Etiology related to CKD5 Signs/Symptoms as evidenced by BUN 103, creatinine 11.10, GFR 5 Status Active Problem Acute Disease or Injury Related Malnutrition Etiology severe related to CKD 5, nausea, vomiting Signs/Symptoms as evidenced by <50% intake of estimated energy needs for 7 days and 3% weight loss in 1 week. Status Active Problem Recommendation Dietitian Recommendations/Changes Change diet to Renal -protein restricted diet, will add CCD diet to help manage blood sugars. If pt starts dialysis, recommend changing diet to Renal General/CCD. Will hold off on ONS due to renal lab values. Lab / Micro Data Result Diagrams: 07/01/22 05:24 07/02/22 05:40 Labs: Laboratory Results - last 24 hr 07/02/22 05:40: Sodium 135 L, Potassium 4.4, Chloride 110 H, Carbon Dioxide 16.0 L, BUN 111 H*, Creatinine 11.80 H*, Estim Creat Clear Calc 6.91, Est GFR (MDRD) Af Amer 6 L, Est GFR (MDRD) Non-Af 5 L, BUN/Creatinine Ratio 9.4 L, Glucose 124 H, Calcium 6.6 L, Phosphorus 7.6 H, Albumin 3.1 L Micro: Microbiology 06/30/22 20:35 Stool Stool Occult Blood (ROB) - Final Radiography Diagnostic Testing: Radiology Impression A/V Fistula Ultrasound 06/30/22 13:37 Interpretation Summary Occluded left radio-cephalic fistula just beyond anastomosis. Patent radial artery with normal waveforms Patent upper arm cephalic vein Ordering Physician: Katlin Castanon Referring Physician: [facility] Performed By: Michael Muro, Chon Chest X-Ray 07/01/22 17:45 IMPRESSION: Right jugular hemodialysis catheter without pneumothorax or other major interval change Electronically Signed: Artur Buckner DO at 18:00 EDT Reading Location ID and State: [address] [place] [address] Tel [phone], Service support , Physical Exam Narrative Seen and examined. Patient had ultrasound duplex of left forearm AV fistula. It was found not functional therefore Dr. Adkins updated and plan for permacath. Physical exam General: Alert, Oriented x3, Cooperative HEENT: Pale conjunctiva. Atraumatic, PERRLA, EOMI, Normocephalic Oral: Oral mucosa moist. No Gingival or Mucosal Lesions/ Ulcerations Neck: Supple, No JVD, Negative Carotid Bruits Chest wall/lungs: Right permacath right IJ. Mild tenderness over the operative site. Air entry diminished in bilateral lung bases. No crepitation/rhonchi Cardiovascular: Regular rate, Regular Rhythm, Normal S1, Normal S2, No murmurs/gallop or rub Abdomen: Soft, midline surgical scar present. No obvious hernia. Bowel Sounds Present, Non Tender, Non-Distended : No renal angle tenderness. No suprapubic tenderness. Extremities: AV fistula on left forearm. Palpable thrill present but not pulsatile. Nonfunctional AV fistula. No edema, Capillary Refill Less than 3 Seconds Skin: No rashes, No breakdown Musculoskeletal: No Tenderness to Palpation of Joints or Extremities Neurological: Cranial nerves II-XII grossly intact, DTR 2+/4 and Symmetrical, Neuro grossly intact Psych/Mental Status: Normal Affect, Appropriate. Assessment & Plan Assessment/Plan (1) CKD (chronic kidney disease), stage V: (2) Anemia in chronic kidney disease (CKD): PLAN: Plan 57-year-old gentleman is being admitted for nausea vomiting for the past 5 days. Found to have CKD stage V progressively worsening and severe anemia 1. Progressive worsening of CKD stage V: Patient is being admitted in PCU. Discussed with the dairy feed worker, Dr. Monterio. I also called patient's dairy feed worker Dr. Holland in [facility] [phone]. Detailed conversation documented in HPI. He agrees with starting the dialysis. Patient might have nausea vomiting from uremia. Patient had 1 L normal saline in ED. Started on half-normal saline at 100 mill per hour. Chloride is 110. Patient has left forearm AV fistula with good palpable thrill. Kidney ultrasound reported the renal cortices are echogenic bilaterally suggestive of medical renal disease. Multiple bilateral renal cysts. Mild atrophy of the left kidney. UA, urine electrolytes, urine protein creatinine ratio ordered. 06/30: Patient does not have signs and symptoms of hypervolemia. Nausea and vomiting has subsided. Phosphorus 8.3. Magnesium 1.6. UA is bland with protein 15, LE negative, WBC 0 RBC 0, bacteria 0. Urine protein/creatinine ratio elevated 533 milligram/gram Cr. Urine sodium 93, potassium 14. Discussed with the dairy feed worker. AV fistula is not pulsatile probably thrombosed/nonfunctioning. I called Dr. Adkins who recommended vascular surgeon for fistulogram/permacath. Vascular surgery called and consult requested. Patient is not emergent need of dialysis. 07/01: Ultrasound of AV fistula shows occluded left radiocephalic fistula just beyond anastomosis. Patent radial artery with normal waveform. Patent upper arm cephalic vein. Dr. Adkins was updated and plan for permacath when the OR available. Hemodialysis afterwards. Potassium 5.1 mild hyperkalemia. BUNs/creatinine 112/11.5. Anion gap 10 therefore normal anion gap metabolic acidosis. Patient not having any uremic symptoms of nausea or vomiting. 07/02: Patient had right IJ tunneled dialysis catheter in evening by Dr. Adknis yesterday. Dialysis catheter is functioning well, discussed with the dialysis nurse. Good blood flow. Patient undergoing dialysis. Mild tenderness around operative site. Patient on Tylenol and oxycodone. 2. Severe chronic symptomatic anemia, most likely due to CKD stage V: Patient hemoglobin is 7.8, MCV 95.4 and platelet count 209,000. Patient might have palpitation dyspnea on exertion from anemia and chronic kidney disease. 2D echo ordered. Anemia work-up ordered. Stool for occult blood ordered patient does not need transfusion. Gallbladder ultrasound shows nonvisualization of pancreas and gallbladder. Nonobstructive right intrarenal calculus. 06/30: Iron work-up shows high iron 220, ferritin 524. Folate normal. B12 531. Overall it is suggestive of anemia due to CKD. Hemoglobin decreased to 6.6. MCV 96. Platelet count 169 K. Plan for PRBC transfusion during dialysis. 07/01:Reticulocyte count 1.2%, immature reticulocyte fraction 4.1% in normal range. It rules out hemolysis or hemolytic anemia. 07/02: Monitor CBC. Next 3. Hypocalcemia: Patient calcium is 6.1. Albumin 3.7. Corrected calcium 6.3. Patient was given calcium gluconate 1 g in ED. Serum phosphorous and magnesium ordered. 06/30: Repeat calcium 5.8. Will leave on dairy feed worker for decision for replacement for replacement 07/02 calcium 6.6 phosphorus high. 4. History of polysubstance use: U tox ordered. 07/02 U tox negative. VTE prophylaxis contraindicated in view of severe anemia. Bilateral SCDs Living will/advanced directive/end of life care: Patient does not have living will or advanced directive. After discussion of benefits/risks procedures involved with full code, DNR CC arrest and DNR CC, the patient opted for full code. He does not have designated power of criminal defense attorney for health. His next of kin is his girlfriend, significant others Ms. Cathleen Paniagua. Patient does want artificial life support including intubation, tube feed, ventilator and/chest compression, central venous catheter, vasopressor and DC shock if needed Clinical Impression(s) from Imaging Studies Gallbladder Ultrasound 06/29/22 11:30 IMPRESSION: Nonvisualization of the pancreas and the gallbladder. Right renal cyst. Nonobstructive right intrarenal calculus. Renal Ultrasound 06/29/22 11:30 IMPRESSION: The renal cortices are echogenic bilaterally suggestive of medical renal disease. Multiple bilateral renal cysts. Mild atrophy of the left kidney. Chest X-Ray 06/29/22 12:21 IMPRESSION: Normal x-ray examination of the chest. Charges/Coding Visit Charges Inpatient E&M: 95649 Subs Hosp L2
--- NOTE | 2022-07-02 15:32 | CASEMGMT ---
Addendum entered by Sidney Floyd 07/02/22 16:00: Pt states he will need a ride home @ discharge. He states he has someone from [place] that will be able to come to [place] to pick him up to take him home. Original Note: STEPHANIE GARNER NOTE: Call placed to Sergei @ [facility] @ re: chair time. He states insurance clearance is still pending and they still need to get VA authorization. He states will place pt on a TTS schedule with chair time of 1 PM @ the [facility] center in [place], [place]. Pt made aware. Sergei states the earliest start of care date would be 07/08. Dr Henson and pt made aware. Talia MORENO RN, CM
--- NOTE | 2022-07-02 16:19 | CASEMGMT ---
STEPHANIE GARNER NOTE: Message received for STEPHANIE GARNER to call Angelia @ [facility] @ [phone] ext: [phone]. Call placed to her @ this time. No answer. VM left for her w/this STEPHANIE GARNER contact # and [employer] CM, Alexandrea Tucker, contact #. Talia MORENO RN, CM
[2022-07-02 17:18] VITALS: BP 118/76; PULSE 62; RESP 18; TEMP 37.1; O2SAT 100
[2022-07-02 21:19] VITALS: BP 136/73; PULSE 60; RESP 18; TEMP 36.7; O2SAT 97
[2022-07-02] MEDS: Tamsulosin HCl 0.4 MG Capsule PO (21:28)
[2022-07-02] MEDS: 0.9% Saline Lock 10 ML Syringe IV (21:30)
[2022-07-03] VITALS (10 sets, daily range): BP systolic 110–140; BP diastolic 65–86; PULSE 61–76; RESP 16–18; TEMP 36.4–37.1; O2SAT 95–97; BMI 23.1
[2022-07-03] MEDS: Acetaminophen 325 MG Tablet 650 MG PO ×2 (03:08→21:00)
[2022-07-03] MEDS: Sodium Bicarbonate 650 MG Tablet 1950 MG PO ×3 (05:36→21:00)
[2022-07-03 07:02] LABS: Absolute Lymphocyte Count 1.55 X10^3/uL (0.83-4.51); Absolute Neutrophil Count 5.6 X10^3/uL (2.0-7.7); Basophil# 0.04 X10^3/uL; Basophil% 0.5 % (0-1); Eosinophil# 0.27 X10^3/uL; Eosinophils% 3.1 % (0-5); Hematocrit 21.3 % (40-54); Hemoglobin 7.1 g/dL (13.0-16.5); Lymphocyte # 1.55 X10^3/ul (0.83-4.51); Lymphocyte % 17.9 % (19-41); Mean Corp Hgb Conc 33.3 g/dL (32-36); Mean Corpuscular Hgb 30.6 pg (27.0-32.0); Mean Corpuscular Volume 91.8 fL (80-94); Mean Platelet Vol. 11.8 fl (6.2-12.0); Monocyte# 1.17 X10^3/uL; Monocyte% 13.5 % (0-10); NRBC Flagged by Analyzer 0 % (0-5); Neutrophil # 5.58 X10^3/uL (2.7-7.7); Neutrophil % 64.7 % (47-70); Platelet Count 151 K/mm3 (150-450); RBC Distribution Width CV 12.7 % (11.6-14.6); RBC Distribution Width SD 42.2 fl (35.1-43.9); Red Blood Count 2.32 M/mm3 (4.6-6.2); White Blood Count 8.6 K/mm3 (4.4-11.0)
[2022-07-03 07:32] LABS: Albumin, Serum 3.1 g/dL (3.2-5.0); BUN 78 mg/dL (7-18); BUN/Creat Ratio 8.4 RATIO (10-20); Calcium,Total 6.6 mg/dL (8.5-10.1); Chloride 109 mmol/L (98-107); Creatinine, Serum 9.24 mg/dL (0.70-1.30); EST Glomerular Filtration Rate 6 mL/min (>60); Est Glom Filt Rate - Afr Amer 8 mL/min (>60); Estimated Creatinine Clearance 8.82 ml/min; Glucose 105 mg/dL (74-106); Phosphorus 6.4 mg/dL (2.5-4.9); Potassium 4.1 mmol/L (3.5-5.1); Sodium Level 138 mmol/L (136-145)
--- NOTE | 2022-07-03 07:56 | PCM.PN.HOSP ---
Reason for Visit Reason for Visit: Diagnoses Anemia in chronic kidney disease (06/29/22) Arteriovenous fistula, acquired (06/29/22) Chronic kidney disease, stage 5 (06/29/22) Chronic kidney disease, unspecified (06/29/22) Unspecified complication of cardiac and vascular prosthetic device, implant and graft, initial encounter (06/29/22) Presence of other vascular implants and grafts (06/29/22) Dependence on renal dialysis (06/29/22) Follow-up for new start of dialysis, CKD stage V. Severe anemia due to CKD Objective Data Objective Data Vital Signs: Vital Signs Temp Pulse Resp BP Pulse Ox O2 Del Method 97.6 F L 65 18 115/65 95 Room Air 07/03/22 05:32 07/03/22 05:32 07/03/22 05:32 07/03/22 05:32 07/03/22 05:32 07/03/22 05:32 Oxygen Delivery Method Room Air Weight: 156 lb 15.506 oz Body Mass Index (BMI) 23.1 Intake & Output: Intake and Output for Last 24 Hours 07/01/22 07/02/22 07/03/22 23:59 23:59 23:59 Intake Total 110 / 110 1130 / 1630 500 / 500 Balance 110 / 110 1130 / 1630 500 / 500 Medical Nutrition Assessment Dietitian: Malnutrition Criteria Met Start: 06/30/22 15:22 Freq: Status: Active Protocol: Document 06/30/22 15:22 LO (Rec: 06/30/22 15:22 [id number]) Nutrition Malnutrition Evidence of Malnutrition Exists Yes Malnutrition (severe): Acute Illness/Injury Evidenced By Suboptimal Energy Intake ( Severe),Weight Loss (Severe) Clinical Problem Altered Nutrient-Related Laboratory Values Etiology related to CKD5 Signs/Symptoms as evidenced by BUN 103, creatinine 11.10, GFR 5 Status Active Problem Acute Disease or Injury Related Malnutrition Etiology severe related to CKD 5, nausea, vomiting Signs/Symptoms as evidenced by <50% intake of estimated energy needs for 7 days and 3% weight loss in 1 week. Status Active Problem Recommendation Dietitian Recommendations/Changes Change diet to Renal -protein restricted diet, will add CCD diet to help manage blood sugars. If pt starts dialysis, recommend changing diet to Renal General/CCD. Will hold off on ONS due to renal lab values. Lab / Micro Data Result Diagrams: 07/03/22 06:16 07/03/22 06:16 Labs: Laboratory Results - last 24 hr 07/03/22 06:16: Sodium 138, Potassium 4.1, Chloride 109 H, Carbon Dioxide 23.0, BUN 78 H, Creatinine 9.24 H*, Estim Creat Clear Calc 8.82, Est GFR (MDRD) Af Amer 8 L, Est GFR (MDRD) Non-Af 6 L, BUN/Creatinine Ratio 8.4 L, Glucose 105, Calcium 6.6 L, Phosphorus 6.4 H, Albumin 3.1 L 07/03/22 06:16: WBC 8.6, RBC 2.32 L, Hgb 7.1 L, Hct 21.3 L, MCV 91.8, MCH 30.6, MCHC 33.3, RDW Std Deviation 42.2, RDW Coeff of [place] 12.7, Plt Count 151, MPV 11.8, Immature Gran % (Auto) 0.300, Neut % (Auto) 64.7, Lymph % (Auto) 17.9 L, [place] % (Auto) 13.5 H, Eos % (Auto) 3.1, Baso % (Auto) 0.5, Absolute Neuts (auto) 5.6, Absolute Lymphs (auto) 1.55, Nucleated RBC % 0 Micro: Microbiology 06/30/22 20:35 Stool Stool Occult Blood (ROB) - Final Physical Exam Narrative Seen and examined. Left permacath is functioning good with good blood flow. Physical exam General: Alert, Oriented x3, Cooperative HEENT: Pale conjunctiva. Atraumatic, PERRLA, EOMI, Normocephalic Oral: Oral mucosa moist. No Gingival or Mucosal Lesions/ Ulcerations Neck: Supple, No JVD, Negative Carotid Bruits Chest wall/lungs: Right permacath right IJ. Tenderness of permacath improved. Air entry diminished in bilateral lung bases. No crepitation/rhonchi Cardiovascular: Regular rate, Regular Rhythm, Normal S1, Normal S2, No murmurs/gallop or rub Abdomen: Soft, midline surgical scar present. No obvious hernia. Bowel Sounds Present, Non Tender, Non-Distended : No renal angle tenderness. No suprapubic tenderness. Extremities: AV fistula on left forearm. Nonfunctional AV fistula. No edema, Capillary Refill Less than 3 Seconds Skin: No rashes, No breakdown Musculoskeletal: No Tenderness to Palpation of Joints or Extremities Neurological: Cranial nerves II-XII grossly intact, DTR 2+/4 and Symmetrical, Neuro grossly intact Psych/Mental Status: Normal Affect, Appropriate. Assessment & Plan Assessment/Plan (1) CKD (chronic kidney disease), stage V: (2) Anemia in chronic kidney disease (CKD): PLAN: Plan 57-year-old gentleman is being admitted for nausea vomiting for the past 5 days. Found to have CKD stage V progressively worsening and severe anemia 1. Progressive worsening of CKD stage V: Patient is being admitted in PCU. Discussed with the lawn mower sharpener, Dr. Monteiro. I also called patient's lawn mower sharpener Dr. Holland in [facility] [phone]. Detailed conversation documented in HPI. He agrees with starting the dialysis. Patient might have nausea vomiting from uremia. Patient had 1 L normal saline in ED. Started on half-normal saline at 100 mill per hour. Chloride is 110. Patient has left forearm AV fistula with good palpable thrill. Kidney ultrasound reported the renal cortices are echogenic bilaterally suggestive of medical renal disease. Multiple bilateral renal cysts. Mild atrophy of the left kidney. UA, urine electrolytes, urine protein creatinine ratio ordered. 06/30: Patient does not have signs and symptoms of hypervolemia. Nausea and vomiting has subsided. Phosphorus 8.3. Magnesium 1.6. UA is bland with protein 15, LE negative, WBC 0 RBC 0, bacteria 0. Urine protein/creatinine ratio elevated 533 milligram/gram Cr. Urine sodium 93, potassium 14. Discussed with the lawn mower sharpener. AV fistula is not pulsatile probably thrombosed/nonfunctioning. I called Dr. Adkins who recommended vascular surgeon for fistulogram/permacath. Vascular surgery called and consult requested. Patient is not emergent need of dialysis. 07/01: Ultrasound of AV fistula shows occluded left radiocephalic fistula just beyond anastomosis. Patent radial artery with normal waveform. Patent upper arm cephalic vein. Dr. Adkins was updated and plan for permacath when the OR available. Hemodialysis afterwards. Potassium 5.1 mild hyperkalemia. BUNs/creatinine 112/11.5. Anion gap 10 therefore normal anion gap metabolic acidosis. Patient not having any uremic symptoms of nausea or vomiting. 07/02: Patient had right IJ tunneled dialysis catheter in evening by Dr. Adkins yesterday. Dialysis catheter is functioning well, discussed with the dialysis nurse. Good blood flow. Patient undergoing dialysis. Mild tenderness around operative site. Patient on Tylenol and oxycodone. 07/03: Patient will be dialyzed today. Monitor of PRBC transfusion during dialysis. 2. Severe chronic symptomatic anemia, most likely due to CKD stage V: Patient hemoglobin is 7.8, MCV 95.4 and platelet count 209,000. Patient might have palpitation dyspnea on exertion from anemia and chronic kidney disease. 2D echo ordered. Anemia work-up ordered. Stool for occult blood ordered patient does not need transfusion. Gallbladder ultrasound shows nonvisualization of pancreas and gallbladder. Nonobstructive right intrarenal calculus. 06/30: Iron work-up shows high iron 220, ferritin 524. Folate normal. B12 531. Overall it is suggestive of anemia due to CKD. Hemoglobin decreased to 6.6. MCV 96. Platelet count 169 K. Plan for PRBC transfusion during dialysis. 07/01:Reticulocyte count 1.2%, immature reticulocyte fraction 4.1% in normal range. It rules out hemolysis or hemolytic anemia. 07/02: Monitor CBC. Next 3. Hypocalcemia: Patient calcium is 6.1. Albumin 3.7. Corrected calcium 6.3. Patient was given calcium gluconate 1 g in ED. Serum phosphorous and magnesium ordered. 06/30: Repeat calcium 5.8. Will leave on lawn mower sharpener for decision for replacement for replacement 07/02 calcium 6.6 phosphorus high. 07/03: Hemoglobin 7.1. Platelet count 150,000, low normal. Patient had 1 unit of PRBC and 1 more will be transfused. 4. History of polysubstance use: 07/02 U tox negative. VTE prophylaxis contraindicated in view of severe anemia. Bilateral SCDs Living will/advanced directive/end of life care: Patient does not have living will or advanced directive. After discussion of benefits/risks procedures involved with full code, DNR CC arrest and DNR CC, the patient opted for full code. He does not have designated power of estate planning attorney for health. His next of kin is his girlfriend, significant others Ms. Cathleen Paniagua. Patient does want artificial life support including intubation, tube feed, ventilator and/chest compression, central venous catheter, vasopressor and DC shock if needed Clinical Impression(s) from Imaging Studies Gallbladder Ultrasound 06/29/22 11:30 IMPRESSION: Nonvisualization of the pancreas and the gallbladder. Right renal cyst. Nonobstructive right intrarenal calculus. Renal Ultrasound 06/29/22 11:30 IMPRESSION: The renal cortices are echogenic bilaterally suggestive of medical renal disease. Multiple bilateral renal cysts. Mild atrophy of the left kidney. Chest X-Ray 06/29/22 12:21 IMPRESSION: Normal x-ray examination of the chest. Charges/Coding Visit Charges Inpatient E&M: 25869 Subs Hosp L2
[2022-07-03] MEDS: Calcium Acetate 667 MG Capsule 1334 MG PO ×2 (08:15→12:11)
[2022-07-03] MEDS: Magnesium Chloride 64 MG Delay Rel.Tablet 128 MG PO ×2 (08:16→21:00)
[2022-07-03] MEDS: Cholecalciferol (VIT D3) 25 MCG TABLET (1,000 UNITS) 50 MCG PO ×2 (08:18→20:59)
[2022-07-03] MEDS: Ferrous Sulfate 325 MG Tablet PO (12:12)
--- NOTE | 2022-07-03 16:28 | NURSING ---
pt getting 1 unit prbc's during dialysis
--- NOTE | 2022-07-03 18:53 | DIALYSIS ---
Hemodialysis complete. 2.5 hour run, 3k bath. Net fluid balance = 0 ml. Patient tolerated HD tx well. Patient received 1 unit PRBC during HD. Right chest CVC: Site benign, biofilm dressing dry and intact. Lumen flushed with NS, filled to volume with Heparin, clamped and capped. Report given to primary RNShelly
[2022-07-03] MEDS: Tamsulosin HCl 0.4 MG Capsule PO (21:00)
[2022-07-03] MEDS: 0.9% Saline Lock 10 ML Syringe IV (21:06)
[2022-07-04 01:11] VITALS: BMI 23.1
[2022-07-04 03:24] VITALS: BP 128/72; PULSE 61; RESP 16; TEMP 36.9; O2SAT 97
[2022-07-04 03:28] VITALS: BP 128/72; PULSE 61; RESP 16; TEMP 36.9; O2SAT 97
[2022-07-04 05:32] LABS: Absolute Lymphocyte Count 1.73 X10^3/uL (0.83-4.51); Absolute Neutrophil Count 5.4 X10^3/uL (2.0-7.7); Basophil# 0.07 X10^3/uL; Basophil% 0.8 % (0-1); Eosinophil# 0.36 X10^3/uL; Eosinophils% 3.9 % (0-5); Hematocrit 26.5 % (40-54); Hemoglobin 8.4 g/dL (13.0-16.5); Lymphocyte # 1.73 X10^3/ul (0.83-4.51); Lymphocyte % 18.9 % (19-41); Mean Corp Hgb Conc 31.7 g/dL (32-36); Mean Corpuscular Hgb 29.7 pg (27.0-32.0); Mean Corpuscular Volume 93.6 fL (80-94); Mean Platelet Vol. 12.1 fl (6.2-12.0); Monocyte# 1.54 X10^3/uL; Monocyte% 16.8 % (0-10); NRBC Flagged by Analyzer 0 % (0-5); Neutrophil # 5.44 X10^3/uL (2.7-7.7); Neutrophil % 59.3 % (47-70); POSITIVE DIFFERENTIAL YES; Platelet Count 158 K/mm3 (150-450); RBC Distribution Width CV 12.8 % (11.6-14.6); RBC Distribution Width SD 43.8 fl (35.1-43.9); Red Blood Count 2.83 M/mm3 (4.6-6.2); White Blood Count 9.2 K/mm3 (4.4-11.0)
[2022-07-04 06:04] LABS: Albumin, Serum 3.4 g/dL (3.2-5.0); BUN 50 mg/dL (7-18); BUN/Creat Ratio 7.7 RATIO (10-20); Calcium,Total 7.1 mg/dL (8.5-10.1); Chloride 106 mmol/L (98-107); Creatinine, Serum 6.47 mg/dL (0.70-1.30); Differential Indicated SCAN CRITERIA MET; EST Glomerular Filtration Rate 10 mL/min (>60); Est Glom Filt Rate - Afr Amer 12 mL/min (>60); Glucose 106 mg/dL (74-106); Phosphorus 5.6 mg/dL (2.5-4.9); Sodium Level 136 mmol/L (136-145)
[2022-07-04 06:07] LABS: Differential Comment SCANNED
[2022-07-04] MEDS: Sodium Bicarbonate 650 MG Tablet 1950 MG PO ×3 (06:10→21:52)
[2022-07-04 08:57] VITALS: BP 128/72; PULSE 69; RESP 17; TEMP 36.7; O2SAT 97
[2022-07-04] MEDS: Cholecalciferol (VIT D3) 25 MCG TABLET (1,000 UNITS) 50 MCG PO ×2 (09:01→21:53)
[2022-07-04] MEDS: Calcium Acetate 667 MG Capsule 1334 MG PO ×3 (09:01→17:33)
[2022-07-04] MEDS: Magnesium Chloride 64 MG Delay Rel.Tablet 128 MG PO ×2 (09:02→21:53)
--- NOTE | 2022-07-04 11:07 | PN.HOSP_ITS ---
Reason for Visit Reason for Visit: Diagnoses Anemia in chronic kidney disease (06/29/22) Arteriovenous fistula, acquired (06/29/22) Chronic kidney disease, stage 5 (06/29/22) Chronic kidney disease, unspecified (06/29/22) Unspecified complication of cardiac and vascular prosthetic device, implant and graft, initial encounter (06/29/22) Presence of other vascular implants and grafts (06/29/22) Dependence on renal dialysis (06/29/22) Objective Data Objective Data Vital Signs: Vital Signs Temp Pulse Resp BP Pulse Ox O2 Del Method 98.1 F 69 17 128/72 H 97 Room Air 07/04/22 08:57 07/04/22 08:57 07/04/22 08:57 07/04/22 08:57 07/04/22 08:57 07/04/22 09:14 Oxygen Delivery Method Room Air Weight: 156 lb 15.506 oz Body Mass Index (BMI) 23.1 Intake & Output: Intake and Output for Last 24 Hours 07/02/22 07/03/22 07/04/22 23:59 23:59 23:59 Intake Total 1130 / 1630 1300 / 1300 Output Total 400 / 400 Balance 1130 / 1630 900 / 900 Medical Nutrition Assessment Dietitian: Malnutrition Criteria Met Start: 06/30/22 15:22 Freq: Status: Active Protocol: Document 06/30/22 15:22 [email or web address] (Rec: 06/30/22 15:22 [id number]) Nutrition Malnutrition Evidence of Malnutrition Exists Yes Malnutrition (severe): Acute Illness/Injury Evidenced By Suboptimal Energy Intake ( Severe),Weight Loss (Severe) Clinical Problem Altered Nutrient-Related Laboratory Values Etiology related to CKD5 Signs/Symptoms as evidenced by BUN 103, creatinine 11.10, GFR 5 Status Active Problem Acute Disease or Injury Related Malnutrition Etiology severe related to CKD 5, nausea, vomiting Signs/Symptoms as evidenced by <50% intake of estimated energy needs for 7 days and 3% weight loss in 1 week. Status Active Problem Recommendation Dietitian Recommendations/Changes Change diet to Renal -protein restricted diet, will add CCD diet to help manage blood sugars. If pt starts dialysis, recommend changing diet to Renal General/CCD. Will hold off on ONS due to renal lab values. Lab / Micro Data Result Diagrams: 07/04/22 04:50 07/04/22 04:50 Labs: Laboratory Results - last 24 hr 07/03/22 08:47: Blood Type O POSITIVE, Antibody Screen NEGATIVE, Crossmatch See Detail 07/04/22 04:50: Sodium 136, Potassium 4.0, Chloride 106, Carbon Dioxide 26.0, BUN 50 H, Creatinine 6.47 H, Estim Creat Clear Calc 12.60, Est GFR (MDRD) Af Amer 12 L, Est GFR (MDRD) Non-Af 10 L, BUN/Creatinine Ratio 7.7 L, Glucose 106, Calcium 7.1 L, Phosphorus 5.6 H, Albumin 3.4 07/04/22 04:50: WBC 9.2, RBC 2.83 L, Hgb 8.4 L, Hct 26.5 L, MCV 93.6, MCH 29.7, MCHC 31.7 L, RDW Std Deviation 43.8, RDW Coeff of Moody 12.8, Plt Count 158, MPV 12.1 H, Immature Gran % (Auto) 0.300, Neut % (Auto) 59.3, Lymph % (Auto) 18.9 L, King % (Auto) 16.8 H, Eos % (Auto) 3.9, Baso % (Auto) 0.8, Absolute Neuts (auto) 5.4, Absolute Lymphs (auto) 1.73, Nucleated RBC % 0, Differential Comment SCANNED Micro: Microbiology 06/30/22 20:35 Stool Stool Occult Blood (ROB) - Final Physical Exam Narrative Seen and examined. Left permacath is functioning good with good blood flow. Subjectively patient's feels much better, improvement in dyspnea after PRBC transfusion. Patient had total 2 units of PRBC transfusion. Physical exam General: Alert, Oriented x3, Cooperative HEENT: Atraumatic, PERRLA, EOMI, Normocephalic Oral: Oral mucosa moist. No Gingival or Mucosal Lesions/ Ulcerations Neck: Supple, No JVD, Negative Carotid Bruits Chest wall/lungs: Right permacath right IJ. Tenderness around right permacath resolved. Air entry diminished in bilateral lung bases. No crepitation/rhonchi Cardiovascular: Regular rate, Regular Rhythm, Normal S1, Normal S2, No murmurs/gallop or rub Abdomen: Soft, midline surgical scar present. No obvious hernia. Bowel Sounds Present, Non Tender, Non-Distended : No renal angle tenderness. No suprapubic tenderness. Extremities: AV fistula on left forearm. Nonfunctional AV fistula. No edema, Capillary Refill Less than 3 Seconds Skin: No rashes, No breakdown Musculoskeletal: No Tenderness to Palpation of Joints or Extremities Neurological: Cranial nerves II-XII grossly intact, DTR 2+/4 and Symmetrical, Neuro grossly intact Psych/Mental Status: Normal Affect, Appropriate. Assessment & Plan Assessment/Plan (1) CKD (chronic kidney disease), stage V: (2) Anemia in chronic kidney disease (CKD): PLAN: Plan 57-year-old gentleman is being admitted for nausea vomiting for the past 5 days. Found to have CKD stage V progressively worsening and severe anemia 1. Progressive worsening of CKD stage V: Patient is being admitted in PCU. Discussed with the naphthol soaping machine operator, Dr. Monteiro. I also called patient's naphthol soaping machine operator Dr. Holland in [facility] [place] [phone]. Detailed conversation documented in HPI. He agrees with starting the dialysis. Patient might have nausea vomiting from uremia. Patient had 1 L normal saline in ED. Started on half-normal saline at 100 mill per hour. Chloride is 110. Patient has left forearm AV fistula with good palpable thrill. Kidney ultrasound reported the renal cortices are echogenic bilaterally suggestive of medical renal disease. Multiple bilateral renal cysts. Mild atrophy of the left kidney. UA, urine electrolytes, urine protein creatinine ratio ordered. 06/30: Patient does not have signs and symptoms of hypervolemia. Nausea and vomiting has subsided. Phosphorus 8.3. Magnesium 1.6. UA is bland with protein 15, LE negative, WBC 0 RBC 0, bacteria 0. Urine protein/creatinine ratio elevated 533 milligram/gram Cr. Urine sodium 93, potassium 14. Discussed with the naphthol soaping machine operator. AV fistula is not pulsatile probably thrombosed/nonfunctioning. I called Dr. Adkins who recommended vascular surgeon for fistulogram/permacath. Vascular surgery called and consult requested. Patient is not emergent need of dialysis. 07/01: Ultrasound of AV fistula shows occluded left radiocephalic fistula just beyond anastomosis. Patent radial artery with normal waveform. Patent upper arm cephalic vein. Dr. Adkins was updated and plan for permacath when the OR available. Hemodialysis afterwards. Potassium 5.1 mild hyperkalemia. BUNs/creatinine 112/11.5. Anion gap 10 therefore normal anion gap metabolic acidosis. Patient not having any uremic symptoms of nausea or vomiting. 07/02: Patient had right IJ tunneled dialysis catheter in evening by Dr. Adkins yesterday. Dialysis catheter is functioning well, discussed with the dialysis nurse. Good blood flow. Patient undergoing dialysis. Mild tenderness around operative site. Patient on Tylenol and oxycodone. 07/03: Patient will be dialyzed today. Monitor of PRBC transfusion during dialysis. 07/04: No plan for dialysis today. Outpatient dialysis set up and preparation for discharge starting tomorrow. 2. Severe chronic symptomatic anemia, most likely due to CKD stage V: Patient hemoglobin is 7.8, MCV 95.4 and platelet count 209,000. Patient might have palpitation dyspnea on exertion from anemia and chronic kidney disease. 2D echo ordered. Anemia work-up ordered. Stool for occult blood ordered patient does not need transfusion. Gallbladder ultrasound shows nonvisualization of pancreas and gallbladder. Nonobstructive right intrarenal calculus. 06/30: Iron work-up shows high iron 220, ferritin 524. Folate normal. B12 531. Overall it is suggestive of anemia due to CKD. Hemoglobin decreased to 6.6. MCV 96. Platelet count 169 K. Plan for PRBC transfusion during dialysis. 07/01:Reticulocyte count 1.2%, immature reticulocyte fraction 4.1% in normal range. It rules out hemolysis or hemolytic anemia. 07/02: Monitor CBC. Next 3. Hypocalcemia: Patient calcium is 6.1. Albumin 3.7. Corrected calcium 6.3. Patient was given calcium gluconate 1 g in ED. Serum phosphorous and magnesium ordered. 06/30: Repeat calcium 5.8. Will leave on naphthol soaping machine operator for decision for replacement for replacement 07/02 calcium 6.6 phosphorus high. 07/03: Hemoglobin 7.1. Platelet count 150,000, low normal. Patient had 1 unit of PRBC and 1 more will be transfused. 07/04: Hemoglobin improved to 8.4 after total 2 units of PRBC transfusion. 4. History of polysubstance use: 07/02 U tox negative. VTE prophylaxis contraindicated in view of severe anemia. Bilateral SCDs Living will/advanced directive/end of life care: Patient does not have living will or advanced directive. After discussion of benefits/risks procedures involved with full code, DNR CC arrest and DNR CC, the patient opted for full code. He does not have designated power of civil rights attorney for health. His next of kin is his girlfriend, significant others Ms. Cathleen Paniagua. Patient does want artificial life support including intubation, tube feed, ventilator and/chest compression, central venous catheter, vasopressor and DC shock if needed Clinical Impression(s) from Imaging Studies Gallbladder Ultrasound 06/29/22 11:30 IMPRESSION: Nonvisualization of the pancreas and the gallbladder. Right renal cyst. Nonobstructive right intrarenal calculus. Renal Ultrasound 06/29/22 11:30 IMPRESSION: The renal cortices are echogenic bilaterally suggestive of medical renal disease. Multiple bilateral renal cysts. Mild atrophy of the left kidney. Chest X-Ray 06/29/22 12:21 IMPRESSION: Normal x-ray examination of the chest. Charges/Coding Visit Charges Inpatient E&M: 30073 Subs Hosp L2
[2022-07-04] MEDS: Ferrous Sulfate 325 MG Tablet PO (12:07)
[2022-07-04 16:04] VITALS: BP 122/75; PULSE 58; RESP 16; TEMP 36.8; O2SAT 97
--- NOTE | 2022-07-04 18:13 | PN.RENAL_ITS ---
Subjective Subjective no new events Objective Data Objective Data Vital Signs: Vital Signs Temp Pulse Resp BP Pulse Ox O2 Del Method 98.2 F 58 L 16 122/75 H 97 Room Air 07/04/22 16:04 07/04/22 16:04 07/04/22 16:04 07/04/22 16:04 07/04/22 16:04 07/04/22 16:04 Oxygen Delivery Method Room Air Weight: 71.2 kg Body Mass Index (BMI) 23.1 Intake & Output: Intake and Output for Last 24 Hours 07/02/22 07/03/22 07/04/22 23:59 23:59 23:59 Intake Total 1130 / 1630 1300 / 1300 550 / 550 Output Total 400 / 400 Balance 1130 / 1630 900 / 900 550 / 550 Medical Nutrition Assessment Dietitian: Malnutrition Criteria Met Start: 06/30/22 15:22 Freq: Status: Active Protocol: Document 06/30/22 15:22 LO (Rec: 06/30/22 15:22 [id number]) Nutrition Malnutrition Evidence of Malnutrition Exists Yes Malnutrition (severe): Acute Illness/Injury Evidenced By Suboptimal Energy Intake ( Severe),Weight Loss (Severe) Clinical Problem Altered Nutrient-Related Laboratory Values Etiology related to CKD5 Signs/Symptoms as evidenced by BUN 103, creatinine 11.10, GFR 5 Status Active Problem Acute Disease or Injury Related Malnutrition Etiology severe related to CKD 5, nausea, vomiting Signs/Symptoms as evidenced by <50% intake of estimated energy needs for 7 days and 3% weight loss in 1 week. Status Active Problem Recommendation Dietitian Recommendations/Changes Change diet to Renal -protein restricted diet, will add CCD diet to help manage blood sugars. If pt starts dialysis, recommend changing diet to Renal General/CCD. Will hold off on ONS due to renal lab values. Lab / Micro Data Result Diagrams: 07/04/22 04:50 07/04/22 04:50 Labs: Laboratory Results - last 24 hr 07/04/22 04:50: Sodium 136, Potassium 4.0, Chloride 106, Carbon Dioxide 26.0, BUN 50 H, Creatinine 6.47 H, Estim Creat Clear Calc 12.60, Est GFR (MDRD) Af Amer 12 L, Est GFR (MDRD) Non-Af 10 L, BUN/Creatinine Ratio 7.7 L, Glucose 106, Calcium 7.1 L, Phosphorus 5.6 H, Albumin 3.4 07/04/22 04:50: WBC 9.2, RBC 2.83 L, Hgb 8.4 L, Hct 26.5 L, MCV 93.6, MCH 29.7, MCHC 31.7 L, RDW Std Deviation 43.8, RDW Coeff of Moody 12.8, Plt Count 158, MPV 12.1 H, Immature Gran % (Auto) 0.300, Neut % (Auto) 59.3, Lymph % (Auto) 18.9 L, Victoria % (Auto) 16.8 H, Eos % (Auto) 3.9, Baso % (Auto) 0.8, Absolute Neuts (auto) 5.4, Absolute Lymphs (auto) 1.73, Nucleated RBC % 0, Differential Comment SCANNED Micro: Microbiology 06/30/22 20:35 Stool Stool Occult Blood (ROB) - Final Physical Exam Narrative Alert and oriented x3, no apparent distress S1, S2, RRR Lung sounds clear anteriorly and posteriorly no wheezes, rhonchi or rales noted Abdomen soft, nontender, positive bowel sounds x4 quadrants No edema noted to bilateral lower legs feet or arms Left forearm AV fistula no thrill or bruit Right chest tunneled HD catheter dressing clean, dry and intact Assessment & Plan Assessment/Plan (1) Anemia in chronic kidney disease (CKD): (2) Metabolic acidosis: PLAN: Plan - New ESRD; patient has a known history of CKD and patient's project manager senior, Dr. Holland (in [place]) was contacted on admission by Dr. Henson. Apparently in October 2021 serum creatinine 5 mg/dL and in April 2022 serum creatinine 4.82. In anticipation for eventual hemodialysis patient did undergo creation left forearm AV fistula in January 2022. Creatinine has been around 11. No improvement. It appears patient has had some progression of CKD now needing renal replacement therapy. Patient does have uremic symptoms, he is not hypervolemic. In anticipation for eventual hemodialysis patient did undergo creation left arm AV fistula however there is no thrill or bruit. Vascular team was consulted, AVF no longer viable; patient will need follow-up with vascular surgeon in [place]. Placement of tunneled HD catheter last evening. Patient to undergo first dialysis today over 2 hours with no UF. Plan for dialysis again tomorrow over 2.5 hours with no UF. utilities ground worker and discharge planning team working on arranging outpatient dialysis in [place]. -Metabolic acidosis secondary to renal failure. Bicarb level should improve once JOURNAL BOX INSPECTOR started. We will continue sodium bicarbonate tablets for now but likely can stop at time of discharge. -Anemia of chronic disease; hemoglobin improved status post 1 unit PRBC. Patient will begin iron and LINDA once at outpatient hemodialysis -Phosphorus 8.6, calcium 6.2. Increased PhosLo 2 tablets with every meal. Monitor phosphorus levels periodically. -Disposition; working on establishing outpatient dialysis center in [place]. Once outpatient dialysis arranged and confirmed okay for discharge per nephrology standpoint. 07/04/22. HD tomorrow. will need placement in local HD unit. no new complaints.
[2022-07-04 21:48] VITALS: BP 133/74; PULSE 60; RESP 18; TEMP 36.9; O2SAT 97
[2022-07-04 21:50] VITALS: BP 133/74; PULSE 60; RESP 18; TEMP 36.9; O2SAT 97
[2022-07-04] MEDS: 0.9% Saline Lock 10 ML Syringe IV (21:52)
[2022-07-04] MEDS: Tamsulosin HCl 0.4 MG Capsule PO (21:53)
[2022-07-05] VITALS (8 sets, daily range): BP systolic 103–157; BP diastolic 52–80; PULSE 56–75; RESP 16–20; TEMP 36.6–37; O2SAT 96–99; BMI 22.8
[2022-07-05] MEDS: Sodium Bicarbonate 650 MG Tablet 1950 MG PO ×2 (04:59→20:51)
[2022-07-05 06:35] LABS: Albumin, Serum 3.1 g/dL (3.2-5.0); BUN 68 mg/dL (7-18); BUN/Creat Ratio 8.5 RATIO (10-20); Calcium,Total 6.6 mg/dL (8.5-10.1); Chloride 109 mmol/L (98-107); Creatinine, Serum 8.01 mg/dL (0.70-1.30); EST Glomerular Filtration Rate 7 mL/min (>60); Est Glom Filt Rate - Afr Amer 9 mL/min (>60); Estimated Creatinine Clearance 10.17 ml/min; Glucose 86 mg/dL (74-106); Phosphorus 6.3 mg/dL (2.5-4.9); Potassium 3.8 mmol/L (3.5-5.1); Sodium Level 139 mmol/L (136-145)
[2022-07-05] MEDS: Calcium Acetate 667 MG Capsule 1334 MG PO ×3 (08:09→17:40)
[2022-07-05] MEDS: Magnesium Chloride 64 MG Delay Rel.Tablet 128 MG PO ×2 (10:28→20:51)
[2022-07-05] MEDS: Cholecalciferol (VIT D3) 25 MCG TABLET (1,000 UNITS) 50 MCG PO ×2 (10:29→20:52)
[2022-07-05] MEDS: Acetaminophen 325 MG Tablet 650 MG PO (10:29)
--- NOTE | 2022-07-05 11:18 | DIALYSIS ---
Hemodialysis complete with 2 liters fluid removed. Dialysis CVC dressing is clean and dry. Pt tolerated treatment without difficulty.
[2022-07-05] MEDS: Ferrous Sulfate 325 MG Tablet PO (11:46)
--- NOTE | 2022-07-05 12:10 | PCM.PN.REN ---
Subjective Subjective no new complaints today Objective Data Objective Data Vital Signs: Vital Signs Temp Pulse Resp BP Pulse Ox O2 Del Method 98.3 F 75 20 H 146/80 H 97 Nasal Cannula 07/05/22 11:17 07/05/22 11:17 07/05/22 11:17 07/05/22 11:17 07/05/22 10:25 07/05/22 11:17 Oxygen Delivery Method Nasal Cannula Weight: 70.1 kg Body Mass Index (BMI) 22.8 Intake & Output: Intake and Output for Last 24 Hours 07/03/22 07/04/22 07/05/22 23:59 23:59 23:59 Intake Total 1300 / 1300 1100 / 1100 Output Total 400 / 400 1999 / 1999 Balance 900 / 900 1100 / 1100 -1999 Medical Nutrition Assessment Dietitian: Malnutrition Criteria Met Start: 06/30/22 15:22 Freq: Status: Active Protocol: Document 06/30/22 15:22 LO (Rec: 06/30/22 15:22 [id number]) Nutrition Malnutrition Evidence of Malnutrition Exists Yes Malnutrition (severe): Acute Illness/Injury Evidenced By Suboptimal Energy Intake ( Severe),Weight Loss (Severe) Clinical Problem Altered Nutrient-Related Laboratory Values Etiology related to CKD5 Signs/Symptoms as evidenced by BUN 103, creatinine 11.10, GFR 5 Status Active Problem Acute Disease or Injury Related Malnutrition Etiology severe related to CKD 5, nausea, vomiting Signs/Symptoms as evidenced by <50% intake of estimated energy needs for 7 days and 3% weight loss in 1 week. Status Active Problem Recommendation Dietitian Recommendations/Changes Change diet to Renal -protein restricted diet, will add CCD diet to help manage blood sugars. If pt starts dialysis, recommend changing diet to Renal General/CCD. Will hold off on ONS due to renal lab values. Lab / Micro Data Result Diagrams: 07/04/22 04:50 07/05/22 05:25 Labs: Laboratory Results - last 24 hr 07/05/22 05:25: Sodium 139, Potassium 3.8, Chloride 109 H, Carbon Dioxide 24.0, BUN 68 H, Creatinine 8.01 H*, Estim Creat Clear Calc 10.17, Est GFR (MDRD) Af Amer 9 L, Est GFR (MDRD) Non-Af 7 L, BUN/Creatinine Ratio 8.5 L, Glucose 86, Calcium 6.6 L, Phosphorus 6.3 H, Albumin 3.1 L Micro: Microbiology 06/30/22 20:35 Stool Stool Occult Blood (ROB) - Final Physical Exam Narrative Alert and oriented x3, no apparent distress S1, S2, RRR Lung sounds clear anteriorly and posteriorly no wheezes, rhonchi or rales noted Abdomen soft, nontender, positive bowel sounds x4 quadrants No edema noted to bilateral lower legs feet or arms Left forearm AV fistula no thrill or bruit Right chest tunneled HD catheter dressing clean, dry and intact Assessment & Plan Assessment/Plan (1) Anemia in chronic kidney disease (CKD): (2) Metabolic acidosis: PLAN: Plan CKD 5, now ESRD. Started on dialysis. Discussed with case management. He does have a outpatient dialysis per near his home starting this . We will do dialysis today, he can drive out tomorrow to [place] and go to dialysis on . For this patient will get dialysis Tuesday, , Tuesday. Volume status is okay. For access he has a right IJ tunneled dialysis catheter which has been working well. all questions answered. From my end, he can be discharged after dialysis.
--- NOTE | 2022-07-05 13:12 | PCM.PN.HOSP ---
Reason for Visit Reason for Visit: Diagnoses Anemia in chronic kidney disease (06/29/22) Acidosis, unspecified (06/29/22) Arteriovenous fistula, acquired (06/29/22) Chronic kidney disease, stage 5 (06/29/22) Chronic kidney disease, unspecified (06/29/22) Unspecified complication of cardiac and vascular prosthetic device, implant and graft, initial encounter (06/29/22) Presence of other vascular implants and grafts (06/29/22) Dependence on renal dialysis (06/29/22) Objective Data Objective Data Vital Signs: Vital Signs Temp Pulse Resp BP Pulse Ox O2 Del Method 98.5 F 61 18 147/77 H 97 Room Air 07/05/22 12:54 07/05/22 12:54 07/05/22 12:54 07/05/22 12:54 07/05/22 10:25 07/05/22 12:54 Oxygen Delivery Method Room Air Weight: 154 lb 8.705 oz Body Mass Index (BMI) 22.8 Intake & Output: Intake and Output for Last 24 Hours 07/03/22 07/04/22 07/05/22 23:59 23:59 23:59 Intake Total 1300 / 1300 1100 / 1100 420 / 420 Output Total 400 / 400 2000 / 2000 Balance 900 / 900 1100 / 1100 -1580 / -1580 Medical Nutrition Assessment Dietitian: Malnutrition Criteria Met Start: 06/30/22 15:22 Freq: Status: Active Protocol: Document 07/05/22 12:38 RMA (Rec: 07/05/22 12:38 RMA [id number]) Nutrition Malnutrition Evidence of Malnutrition Exists Yes Malnutrition (severe): Acute Illness/Injury Evidenced By Suboptimal Energy Intake ( Severe),Weight Loss (Severe) Clinical Problem Altered Nutrient-Related Laboratory Values Etiology related to CKD5 Signs/Symptoms as evidenced by BUN 111, creatinine 11.80, GFR 5 Status Active Problem Acute Disease or Injury Related Malnutrition Etiology severe related to CKD 5, nausea, vomiting Signs/Symptoms as evidenced by <50% intake of estimated energy needs for 7 days and 3% weight loss in 1 week prior to admission Status Active Problem Recommendation Dietitian Recommendations/Changes Will change diet to Renal - General; no carbohydrate restrictions. Nepro PO as needed if PO fails at meals; defer for now. Renal diet education as pt willing. Lab / Micro Data Result Diagrams: 07/04/22 04:50 07/05/22 05:25 Labs: Laboratory Results - last 24 hr 07/05/22 05:25: Sodium 139, Potassium 3.8, Chloride 109 H, Carbon Dioxide 24.0, BUN 68 H, Creatinine 8.01 H*, Estim Creat Clear Calc 10.17, Est GFR (MDRD) Af Amer 9 L, Est GFR (MDRD) Non-Af 7 L, BUN/Creatinine Ratio 8.5 L, Glucose 86, Calcium 6.6 L, Phosphorus 6.3 H, Albumin 3.1 L Micro: Microbiology 06/30/22 20:35 Stool Stool Occult Blood (ROB) - Final Physical Exam Narrative Seen and examined. No acute issues. Left permacath is functioning good with good blood flow. Subjectively patient's feels much better, improvement in dyspnea after 2 units of PRBC transfusion. Physical exam General: Alert, Oriented x3, Cooperative HEENT: Atraumatic, PERRLA, EOMI, Normocephalic Oral: Oral mucosa moist. No Gingival or Mucosal Lesions/ Ulcerations Neck: Supple, No JVD, Negative Carotid Bruits Chest wall/lungs: Right permacath right IJ. Tenderness around right permacath resolved. Air entry diminished in bilateral lung bases. No crepitation/rhonchi Cardiovascular: Regular rate, Regular Rhythm, Normal S1, Normal S2, No murmurs/gallop or rub Abdomen: Soft, midline surgical scar present. No obvious hernia. Bowel Sounds Present, Non Tender, Non-Distended : No renal angle tenderness. No suprapubic tenderness. Extremities: AV fistula on left forearm. Nonfunctional AV fistula. No edema, Capillary Refill Less than 3 Seconds Skin: No rashes, No breakdown Musculoskeletal: No Tenderness to Palpation of Joints or Extremities Neurological: Cranial nerves II-XII grossly intact, DTR 2+/4 and Symmetrical, Neuro grossly intact Psych/Mental Status: Normal Affect, Appropriate. Assessment & Plan Assessment/Plan (1) CKD (chronic kidney disease), stage V: (2) Anemia in chronic kidney disease (CKD): PLAN: Plan 57-year-old gentleman is being admitted for nausea vomiting for the past 5 days. Found to have CKD stage V progressively worsening and severe anemia 1. Progressive worsening of CKD stage V: Patient is being admitted in PCU. Discussed with the director of recruitment and admissions, Dr. Monteiro. I also called patient's director of recruitment and admissions Dr. Holland in [facility], [place] [id number]. Detailed conversation documented in HPI. He agrees with starting the dialysis. Patient might have nausea vomiting from uremia. Patient had 1 L normal saline in ED. Started on half-normal saline at 100 mill per hour. Chloride is 110. Patient has left forearm AV fistula with good palpable thrill. Kidney ultrasound reported the renal cortices are echogenic bilaterally suggestive of medical renal disease. Multiple bilateral renal cysts. Mild atrophy of the left kidney. UA, urine electrolytes, urine protein creatinine ratio ordered. 06/30: Patient does not have signs and symptoms of hypervolemia. Nausea and vomiting has subsided. Phosphorus 8.3. Magnesium 1.6. UA is bland with protein 15, LE negative, WBC 0 RBC 0, bacteria 0. Urine protein/creatinine ratio elevated 533 milligram/gram Cr. Urine sodium 93, potassium 14. Discussed with the director of recruitment and admissions. AV fistula is not pulsatile probably thrombosed/nonfunctioning. I called Dr. Adkins who recommended vascular surgeon for fistulogram/permacath. Vascular surgery called and consult requested. Patient is not emergent need of dialysis. 07/01: Ultrasound of AV fistula shows occluded left radiocephalic fistula just beyond anastomosis. Patent radial artery with normal waveform. Patent upper arm cephalic vein. Dr. Adkins was updated and plan for permacath when the OR available. Hemodialysis afterwards. Potassium 5.1 mild hyperkalemia. BUNs/creatinine 112/11.5. Anion gap 10 therefore normal anion gap metabolic acidosis. Patient not having any uremic symptoms of nausea or vomiting. 07/02: Patient had right IJ tunneled dialysis catheter in evening by Dr. Adkins yesterday. Dialysis catheter is functioning well, discussed with the dialysis nurse. Good blood flow. Patient undergoing dialysis. Mild tenderness around operative site. Patient on Tylenol and oxycodone. 07/03: Patient will be dialyzed today. Monitor of PRBC transfusion during dialysis. 07/04: No plan for dialysis today. Outpatient dialysis set up and preparation for discharge starting tomorrow. 07/05: Dialysis regimen as per director of recruitment and admissions. Discussed with the telephonic case manager regarding setting up outpatient dialysis in [facility]. Plan is dialysis tomorrow here and then discharge in the next dialysis on in [place]. 2. Severe chronic symptomatic anemia, most likely due to CKD stage V: Patient hemoglobin is 7.8, MCV 95.4 and platelet count 209,000. Patient might have palpitation dyspnea on exertion from anemia and chronic kidney disease. 2D echo ordered. Anemia work-up ordered. Stool for occult blood ordered patient does not need transfusion. Gallbladder ultrasound shows nonvisualization of pancreas and gallbladder. Nonobstructive right intrarenal calculus. 06/30: Iron work-up shows high iron 220, ferritin 524. Folate normal. B12 531. Overall it is suggestive of anemia due to CKD. Hemoglobin decreased to 6.6. MCV 96. Platelet count 169 K. Plan for PRBC transfusion during dialysis. 07/01:Reticulocyte count 1.2%, immature reticulocyte fraction 4.1% in normal range. It rules out hemolysis or hemolytic anemia. 07/02: Monitor CBC. Next 3. Hypocalcemia: Patient calcium is 6.1. Albumin 3.7. Corrected calcium 6.3. Patient was given calcium gluconate 1 g in ED. Serum phosphorous and magnesium ordered. 06/30: Repeat calcium 5.8. Will leave on director of recruitment and admissions for decision for replacement for replacement 07/02 calcium 6.6 phosphorus high. 07/03: Hemoglobin 7.1. Platelet count 150,000, low normal. Patient had 1 unit of PRBC and 1 more will be transfused. 07/04: Hemoglobin improved to 8.4 after total 2 units of PRBC transfusion. 07/05: Hemoglobin on the baseline. 4. History of polysubstance use: 07/02 U tox negative. VTE prophylaxis contraindicated in view of severe anemia. Bilateral SCDs Living will/advanced directive/end of life care: Patient does not have living will or advanced directive. After discussion of benefits/risks procedures involved with full code, DNR CC arrest and DNR CC, the patient opted for full code. He does not have designated power of transactional attorney for health. His next of kin is his girlfriend, significant others Ms. Cathleen Paniagua. Patient does want artificial life support including intubation, tube feed, ventilator and/chest compression, central venous catheter, vasopressor and DC shock if needed Clinical Impression(s) from Imaging Studies Gallbladder Ultrasound 06/29/22 11:30 IMPRESSION: Nonvisualization of the pancreas and the gallbladder. Right renal cyst. Nonobstructive right intrarenal calculus. Renal Ultrasound 06/29/22 11:30 IMPRESSION: The renal cortices are echogenic bilaterally suggestive of medical renal disease. Multiple bilateral renal cysts. Mild atrophy of the left kidney. Chest X-Ray 06/29/22 12:21 IMPRESSION: Normal x-ray examination of the chest. Charges/Coding Visit Charges Inpatient E&M: 68405 Subs Hosp L2
--- NOTE | 2022-07-05 16:06 | CASEMGMT ---
STEPHANIE GARNER called Sergei at [facility] to confirm start of care for . Per Sergei, patient is ready for treatment on at [facility]. STEPHANIE GARNER printed treatment schedule and provided to patient. Patient voiced appreciation and had no further questions or concerns. Patient states his girlfriend will be here tomorrow to drive him back home [facility] will continue to follow this patient and plan for a safe discharge.
--- NOTE | 2022-07-05 16:18 | BH.SGPN.TEST ---
Group Topic: [] # of Participants: [] Goal of Group: [] Staff Interventions: [] Hemodialysis complete with 1.5 liters fluid removed. Pt tolerated procedure without difficulty. Right chest tunneled dialysis CVC dressing is clean and dry.
[2022-07-05] MEDS: Heparin 10,000 UNITS/10 ML Vial IV (17:35)
[2022-07-05] MEDS: Tamsulosin HCl 0.4 MG Capsule PO (20:50)
[2022-07-06 02:59] VITALS: BP 113/54; PULSE 66; RESP 16; TEMP 36.9; O2SAT 96
[2022-07-06 06:00] VITALS: BMI 23.1
[2022-07-06] MEDS: Sodium Bicarbonate 650 MG Tablet 1950 MG PO ×2 (06:04→13:09)
[2022-07-06 06:43] LABS: Albumin, Serum 3.3 g/dL (3.2-5.0); BUN 39 mg/dL (7-18); BUN/Creat Ratio 7.6 RATIO (10-20); Calcium,Total 7.1 mg/dL (8.5-10.1); Chloride 106 mmol/L (98-107); Creatinine, Serum 5.16 mg/dL (0.70-1.30); EST Glomerular Filtration Rate 12 mL/min (>60); Est Glom Filt Rate - Afr Amer 15 mL/min (>60); Estimated Creatinine Clearance 15.79 ml/min; Glucose 109 mg/dL (74-106); Phosphorus 4.9 mg/dL (2.5-4.9); Potassium 3.8 mmol/L (3.5-5.1); Sodium Level 138 mmol/L (136-145)
[2022-07-06 08:21] VITALS: BP 123/69; PULSE 79; RESP 16; TEMP 36.8; O2SAT 97
[2022-07-06] MEDS: Cholecalciferol (VIT D3) 25 MCG TABLET (1,000 UNITS) 50 MCG PO (08:27)
[2022-07-06] MEDS: Magnesium Chloride 64 MG Delay Rel.Tablet 128 MG PO (08:28)
[2022-07-06] MEDS: Calcium Acetate 667 MG Capsule 1334 MG PO ×2 (08:28→13:10)
--- NOTE | 2022-07-06 09:32 | PN.RENAL_ITS ---
Subjective Subjective Sitting up in bed. No overnight events. No complaints. Objective Data Objective Data Vital Signs: Vital Signs Temp Pulse Resp BP Pulse Ox O2 Del Method 98.3 F 79 16 123/69 H 97 Room Air 07/06/22 08:21 07/06/22 08:21 07/06/22 08:21 07/06/22 08:21 07/06/22 08:21 07/06/22 08:21 Oxygen Delivery Method Room Air Weight: 71.2 kg Body Mass Index (BMI) 23.1 Intake & Output: Intake and Output for Last 24 Hours 07/04/22 07/05/22 07/06/22 23:59 23:59 23:59 Intake Total 1100 / 1100 770 / 770 Output Total 3500 / 3500 Balance 1100 / 1100 -2730 / -2730 Medical Nutrition Assessment Dietitian: Malnutrition Criteria Met Start: 06/30/22 15:22 Freq: Status: Active Protocol: Document 07/05/22 12:38 RMA (Rec: 07/05/22 12:38 RMA [id number]) Nutrition Malnutrition Evidence of Malnutrition Exists Yes Malnutrition (severe): Acute Illness/Injury Evidenced By Suboptimal Energy Intake ( Severe),Weight Loss (Severe) Clinical Problem Altered Nutrient-Related Laboratory Values Etiology related to CKD5 Signs/Symptoms as evidenced by BUN 111, creatinine 11.80, GFR 5 Status Active Problem Acute Disease or Injury Related Malnutrition Etiology severe related to CKD 5, nausea, vomiting Signs/Symptoms as evidenced by <50% intake of estimated energy needs for 7 days and 3% weight loss in 1 week prior to admission Status Active Problem Recommendation Dietitian Recommendations/Changes Will change diet to Renal - General; no carbohydrate restrictions. Nepro PO as needed if PO fails at meals; defer for now. Renal diet education as pt willing. Lab / Micro Data Result Diagrams: 07/04/22 04:50 07/06/22 05:18 Labs: Laboratory Results - last 24 hr 07/06/22 05:18: Sodium 138, Potassium 3.8, Chloride 106, Carbon Dioxide 26.0, BUN 39 H, Creatinine 5.16 H, Estim Creat Clear Calc 15.79, Est GFR (MDRD) Af Amer 15 L, Est GFR (MDRD) Non-Af 12 L, BUN/Creatinine Ratio 7.6 L, Glucose 109 H , Calcium 7.1 L, Phosphorus 4.9, Albumin 3.3 Micro: Microbiology 06/30/22 20:35 Stool Stool Occult Blood (ROB) - Final Physical Exam Narrative Alert and oriented x3, no apparent distress S1, S2, RRR Lung sounds clear anteriorly and posteriorly Abdomen soft, nontender, positive bowel sounds x4 quadrants No edema noted Left forearm AV fistula no thrill or bruit Right chest tunneled HD catheter dressing clean, dry and intact Assessment & Plan Assessment/Plan (1) Anemia in chronic kidney disease (CKD): (2) Metabolic acidosis: PLAN: Plan CKD 5, now ESRD. Started on dialysis, first dialysis 07/02. Patient dialyzed yesterday. No acute indication for HEALTH AND [employer]AF[employer]Y INSTRU[employer] today. Discussed with case management, patient has outpatient dialysis arranged near his home. Outpatient dialysis schedule is TTS, patient is aware of the schedule and where to go to dialysis on . For this patient he will get dialysis Tuesday, , Tuesday this week. Volume status is okay. For access he has a right IJ tunneled dialysis catheter which has been working well. Okay for discharge per renal standpoint. Discussed with discharge planning team and Dr. Braswell.
--- NOTE | 2022-07-06 10:49 | DCINST_ITS ---
Discharge Instructions Diet Discharge Diet: Renal Diet Activity Discharge Activity: Return to Normal Activity Weight Bearing Status: Full weight bearing Dressing / Incision Call your doctor if your incision/area has: Sudden Increased Bleeding, Increased Pain/ Swelling and Foul Smelling Discharge Call your doctor if you observe: Fever of 101 or Higher Follow Up Care Test Results: Test results from this visit will be discussed in further detail at your follow- up appointment, if applicable. Discharge Plan Admission Admit Date/Time: 06/29/22 12:10 Primary Reason for Your Visit: Renal failure requiring dialysis Attending Provider: Adriano Braswell Primary Care Provider: [facility] Consulting Providers: Elsy Monteiro ; Dexter Cavazos ; Nato Adkins ; Jeferson Henson Instructions Additional Instructions / Restrictions: Do not change dressing on your dialysis catheter Discharge Orders/Prescriptions Prescriptions: Continued zinc gluconate 50 mg Tablet 50 mg PO BID cholecalciferol (vitamin D3) 50 mcg (2,000 unit) Capsule 50 mcg PO BID calcium acetate 667 mg Tablet 667 mg PO TID tamsulosin 0.4 mg capsule 0.4 mg PO QHS Discontinued sodium bicarbonate 650 mg Tablet 1,950 mg PO BID ferrous sulfate 325 mg (65 mg iron) Tablet 325 mg PO BID magnesium 200 mg Tablet 600 mg PO BID Referrals / Follow Up: [facility] [Primary Care Provider] - See Referral Note (Call for appointment) Disposition Disposition (needs filled in before D/C Order can be placed): Home, Self Care
--- NOTE | 2022-07-06 11:01 | PCM.DC.SUM ---
Providers Date of Admission: 06/29/22 Date of Discharge: 07/06/22 Primary Care Physician: [facility] Consultations 06/29/22 14:41 Consult: Nephrology Routine Consulting Provider: Elsy Monteiro Reason for Consult: CKD stage V EMERGENT Consult: No Notified: Yes Date Notified: 06/29/22 Time Notified: 14:41 Method of Notification: Verbal 06/30/22 10:10 Consult: Vascular Surgery Routine Consulting Provider: Dexter Cavazos Reason for Consult: To evaluate left forearm AV fistula, CKD Stage 5 EMERGENT Consult: No Notified: Yes Date Notified: 06/30/22 Time Notified: 10:10 Method of Notification: Text 07/01/22 11:17 Consult: General Surgery Routine Consulting Provider: Nato Adkins Reason for Consult: Permacath dialysis catheter EMERGENT Consult: No Notified: Yes Date Notified: 07/01/22 Time Notified: 11:00 Method of Notification: Verbal Reason For Visit: ANNITA Diagnosis Discharge Diagnosis (1) Anemia in chronic kidney disease (CKD): Status: Chronic Code(s): N18.9 - Chronic kidney disease, unspecified; D63.1 - Anemia in chronic kidney disease (2) Metabolic acidosis: Status: Acute Code(s): E87.20 - Acidosis, unspecified Plan 1. Acute renal failure with uremia on a backdrop of chronic kidney disease stage IV-requiring hemodialysis #2 anemia of chronic kidney disease-requiring blood transfusion #3 hypocalcemia-secondary to acute kidney failure #4 acute protein and caloric malnutrition related to chronic kidney disease stage V with nausea and vomiting as evidenced by less than 50% intake of estimated energy needs for 7 days and 3% weight loss in 1 week Medications at Discharge Home Medications calcium acetate 667 mg tablet 667 mg PO TID BINDER 06/29/22 cholecalciferol (vitamin D3) 50 mcg (2,000 unit) capsule 50 mcg PO BID SUPPLEMENT 06/29/22 tamsulosin 0.4 mg capsule 0.4 mg PO QHS PROSTATE 06/29/22 zinc gluconate 50 mg tablet 50 mg PO BID SUPPLEMENT 06/29/22 Hospital Course Operations - (Insertion of tunneled dialysis catheter) Procedures Dialysis Summary of Care Provided Minutes Spent on Discharge: 32 Hospital Course: This 57-year-old white male came to the emergency room at [facility] with generalized weakness and nausea and vomiting. 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 Labs in the emergency room showed a creatinine of 12.1 and a BUN of 114, bicarbonate was low at 18, hemoglobin was 7.8. Patient was admitted to PCU and seen in consultation by nephrology and general surgery, the patient's fistula was nonfunctional and he had a tunneled dialysis catheter placed. Patient underwent dialysis and was given blood transfusion due to his anemia. Patient was seen by nutritional services. On 07/06/2022, patient was seen and examined: On examination he appeared in good health and spirits. Vital signs as documented. Skin warm and dry and without overt rashes. Neck without JVD, neck was supple, trachea midline, thyroid was normal. Lungs clear bilaterally, normal air movement was noted. Heart exam notable for regular rhythm, normal sounds and absence of murmurs, rubs or gallops. Abdomen unremarkable and without evidence of organomegaly, masses, or abdominal aortic enlargement. Bowel sounds are present, abdomen is not distended. Extremities nonedematous, no cyanosis was noted, no clubbing was noted. Neuro: Cranial nerves II through XII are grossly intact, no focal motor deficits were noted, sensation to light touch and pinprick intact, motor exam 5/5 throughout. Psych: Patient is alert and oriented x3, he does not appear anxious or depressed, he does not appear agitated. Patient appears stable for discharge home on 07/06/2022. Medical Records Data Medical Nutrition Assessment Dietitian: Malnutrition Criteria Met Start: 06/30/22 15:22 Freq: Status: Active Protocol: Document 07/05/22 12:38 RMA (Rec: 07/05/22 12:38 RMA [id number]) Nutrition Malnutrition Evidence of Malnutrition Exists Yes Malnutrition (severe): Acute Illness/Injury Evidenced By Suboptimal Energy Intake ( Severe),Weight Loss (Severe) Clinical Problem Altered Nutrient-Related Laboratory Values Etiology related to CKD5 Signs/Symptoms as evidenced by BUN 111, creatinine 11.80, GFR 5 Status Active Problem Acute Disease or Injury Related Malnutrition Etiology severe related to CKD 5, nausea, vomiting Signs/Symptoms as evidenced by <50% intake of estimated energy needs for 7 days and 3% weight loss in 1 week prior to admission Status Active Problem Recommendation Dietitian Recommendations/Changes Will change diet to Renal - General; no carbohydrate restrictions. Nepro PO as needed if PO fails at meals; defer for now. Renal diet education as pt willing. Weight / BMI Weight Weight: 71.2 kg Body Mass Index (BMI) 23.1 ABG / Lab / Microbiology Data Result Diagrams: 07/04/22 04:50 07/06/22 05:18 Laboratory: Laboratory Results - last 24 hr 07/06/22 05:18: Sodium 138, Potassium 3.8, Chloride 106, Carbon Dioxide 26.0, BUN 39 H, Creatinine 5.16 H, Estim Creat Clear Calc 15.79, Est GFR (MDRD) Af Amer 15 L, Est GFR (MDRD) Non-Af 12 L, BUN/Creatinine Ratio 7.6 L, Glucose 109 H, Calcium 7.1 L, Phosphorus 4.9, Albumin 3.3 Microbiology: Microbiology 06/30/22 20:35 Stool Stool Occult Blood (ROB) - Final D/C Instructions Discharge Diet: Renal Diet Weight Bearing Status: Full weight bearing Call your doctor if your incision/area has: Sudden Increased Bleeding, Increased Pain/ Swelling and Foul Smelling Discharge Call your doctor if you observe: Fever of 101 or Higher Meaningful Use Info Meaningful Use Diagnoses (Choose all that apply): None applicable Discharge Plan Admission Admit Date/Time: 06/29/22 12:10 Primary Reason for Your Visit: Renal failure requiring dialysis Attending Provider: Adriano Braswell Primary Care Provider: [facility],[place] Consulting Providers: Elsy Monteiro ; Dexter Cavazos ; Nato Adkins ; Jeferson Henson Instructions Additional Instructions / Restrictions: Do not change dressing on your dialysis catheter Discharge Orders/Prescriptions Prescriptions: Continued zinc gluconate 50 mg Tablet 50 mg PO BID cholecalciferol (vitamin D3) 50 mcg (2,000 unit) Capsule 50 mcg PO BID calcium acetate 667 mg Tablet 667 mg PO TID tamsulosin 0.4 mg capsule 0.4 mg PO QHS Discontinued sodium bicarbonate 650 mg Tablet 1,950 mg PO BID ferrous sulfate 325 mg (65 mg iron) Tablet 325 mg PO BID magnesium 200 mg Tablet 600 mg PO BID Referrals / Follow Up: [facility],[place] [Primary Care Provider] - See Referral Note (Call for appointment) Disposition Disposition (needs filled in before D/C Order can be placed): Home, Self Care Charges/Coding Visit Charges Inpatient E&M: 65631 Disch Hosp >30min
--- NOTE | 2022-07-06 11:27 | PHA.DC.MR ---
Pharmacy Service has performed discharge medication reconciliation for this patient. The patient's discharge medication list was reviewed for discrepancies and discrepancies were resolved. Home Medications calcium acetate 667 mg tablet 667 mg PO TID BINDER 06/29/22 cholecalciferol (vitamin D3) 50 mcg (2,000 unit) capsule 50 mcg PO BID SUPPLEMENT 06/29/22 tamsulosin 0.4 mg capsule 0.4 mg PO QHS PROSTATE 06/29/22 zinc gluconate 50 mg tablet 50 mg PO BID SUPPLEMENT 06/29/22
[2022-07-06 13:06] VITALS: BP 145/89; PULSE 75; RESP 16; TEMP 36.6; O2SAT 97
[2022-07-06] MEDS: Ferrous Sulfate 325 MG Tablet PO (13:09)
== END 2022-07-06 17:37 | disposition home or self-care (01) | DRG 673 ==
LOC: ED 11:23 → PCU 12:08
PROVIDERS: Anesthesiology; Nurse Practitioner Adult Health; Surgery; Admitting Provider Internal Medicine; Emergency Provider Student in an Organized Health Care Education/Training Program; Visit Provider Internal Medicine
PROC: 0JH63XZ Insertion of Tunneled Vascular Access Device into Chest Subcutaneous Tissue and Fascia, Percutaneous Approach (ICD-10-PCS; principal; 2022-07-01 15:10)
DX: N17.9 Acute kidney failure, unspecified (principal); E43 Unspecified severe protein-calorie malnutrition; E87.20 Acidosis, unspecified; D63.1 Anemia in chronic kidney disease; E83.51 Hypocalcemia; N18.5 Chronic kidney disease, stage 5; Z99.2 Dependence on renal dialysis; R11.2 Nausea with vomiting, unspecified; N26.1 Atrophy of kidney (terminal); Z87.891 Personal history of nicotine dependence; Z66 Do not resuscitate; N28.1 Cyst of kidney, acquired; Z51.5 Encounter for palliative care; Z68.23 Body mass index [BMI] 23.0-23.9, adult
CPT/HCPCS: 36415; 71045; 76000; 76705; 76770; 80048; 80053; 80069; 80307; 81001; 82274; 82436; 82570; 82607; 82728; 82746; 83540; 83550; 83690; 83735; 83935; 84100; 84133; 84156; 84300; 84484; 85025; 85045; 85610; 86704; 86706; 86850; 86900; 86901; 86920; 86922; 87340; 90937; 93005; 93306; 93990; 94668; 99285; J7030; J7040; J7120; P9016; A4216; C1750; G0257; J0612; J2405